=== PATIENT | female | born 1990 | race Caucasian/White ===

== ENCOUNTER 2017-03-27 11:23 | Emergency (ER) | payer OTHER ==
[2017-03-27 11:28] VITALS: TEMP 98.4
--- NOTE | 2017-03-27 12:06 | PDOC ---
History of Present Illness - General Chief Complaint: Pain Stated Complaint: CONSTIPATION Time Seen by Provider: 03/27/17 12:00 - History of Present Illness Initial Comments: 03/27/17 12:05 27 yo F with h/o gastritis who presents with rectal pain. Patient reports worsening rectal pain over the past 3 days. States that she has had recurrent hemorrhoids over the past 2 years with worsening of symptoms this past week. Has visualized BRBPR when wiping. Pain with defecation. Symtpoms refractry to preparation H medication . Also complains of diarrhea typically associated with her menstruation. States that she experiences worsening of her gastritis during menstruation and currently endorses reflux type substernal burning worsened with "spicy" foods. Currently menstruating. Denies N/V, F/C, dysuria, hematuria , chest pain, SOB. PCP Dr. Parry. Past History - Past Medical History Allergies/Adverse Reactions: Allergies Allergy/AdvReac Type Severity Reaction Status Date / Time No Known Allergies Allergy Verified 03/27/17 11:28 Home Medications: Ambulatory Orders Hydrocortisone [Preparation H] 26 gm TP BID PRN 03/27/17 Anemia: No Asthma: No Cancer: No Cardiac Disorders: No CVA: No COPD: No CHF: No DVT: No Dementia: No Diabetes: No Dialysis: No GI Disorders: Yes (gastritis) HTN: No Hypercholesterolemia: No Kidney Stones: No Liver Disease: No Psychiatric Problems: No Seizures: No Thyroid Disease: No Lung CA: No - Surgical History Abdominal Surgery: No - Immunization History Immunization Up to Date: Yes - Suicide/Smoking/Psychosocial Hx Smoking Status: No Smoking History: Never smoked Number of Cigarettes Smoked Daily: 0 Hx Alcohol Use: No Drug/Substance Use Hx: No Substance Use Type: None Review of Systems - Review of Systems Comments:: 03/27/17 12:05 GENERAL/CONSTITUTIONAL: No fever or chills. No weakness. HEAD, EYES, EARS, NOSE AND THROAT: No change in vision. No ear pain or discharge. No sore throat.- CARDIOVASCULAR: No chest pain or shortness of breath RESPIRATORY: No cough, wheezing, or hemoptysis. GASTROINTESTINAL:+ diarrhea and rectal pain. No nausea, vomiting, constipation. GENITOURINARY: No dysuria, frequency, or change in urination. MUSCULOSKELETAL: No joint or muscle swelling or pain. No neck or back pain. SKIN: No rash NEUROLOGIC: No headache, vertigo, loss of consciousness, or change in strength/ sensation. ENDOCRINE: No increased thirst. No abnormal weight change HEMATOLOGIC/LYMPHATIC: No anemia, easy bleeding, or history of blood clots. ALLERGIC/IMMUNOLOGIC: No hives or skin allergy. *Physical Exam - Vital Signs Last Vital Signs Temp Pulse Resp BP Pulse Ox 98.4 F 77 20 152/98 99 03/27/17 11:25 03/27/17 11:25 03/27/17 11:25 03/27/17 11:25 03/27/17 11:25 - Physical Exam Comments: 03/27/17 12:05 GENERAL: Awake, alert, and fully oriented, in no acute distress HEAD: No signs of trauma, normocephalic, atraumatic EYES: PERRLA, EOMI, sclera anicteric, conjunctiva clear ENT: Hearing grossly normal, nares patent, oropharynx clear without exudates. Moist mucosa NECK: Normal ROM, no JVD, or masses LUNGS: No distress, speaks full sentences, clear to auscultation bilaterally HEART: Regular rate and rhythm, normal S1 and S2, no murmurs, rubs or gallops, peripheral pulses normal and equal bilaterally. ABDOMEN: Soft, epigastrium ttp, normoactive bowel sounds. No guarding, no rebound. No masses. Neg CVA ttp. Rectal: x 1 1-2 cm external hemmorhoid with no evidence of thrombosis. EXTREMITIES : Normal inspection, Normal range of motion, no edema. No clubbing or cyanosis. SKIN: Warm, Dry, normal turgor, no rashes or lesions noted. ED Treatment Course - LABORATORY CBC & Chemistry Diagram: 03/27/17 12:57 03/27/17 12:57 Medical Decision Making - Medical Decision Making 03/27/17 12:34 27 yo F with h/o gastritis who presents with worsening rectal pain over the past 3 days with recurrent hemorrhoids over the past 2 years with worsening of symptoms this past week. Asx w/ BRBPR when wiping and with defecation. Also complains of epigastric burning. Currently menstruating. Denies N/V, F/C, dysuria, hematuria, chest pain, SOB. Physical exam with substernal ttp and external hemmorhoid measuring 1-2 cm.. Hemodynamically stable. Symptoms most likely 2/2 hemmorhoidal pain. ED Course: CBC, CMP, Lipase, UA, Urine preg 03/27/17 13:42 UA: 3 + Blood CBC: Unremarkable 03/27/17 14:07 CMP: Unremarkable Patient safe and ready for d/c with return precautions. Will not attempt hemorrhoidectomy as hemmorrhoids do not appear thrombosed. Will f/u with GI. *DC/Admit/Observation/Transfer Diagnosis at time of Disposition: Bleeding hemorrhoids - Discharge Dispostion Disposition: HOME Condition at time of disposition: Stable Admit: No - Referrals Referrals: Martha Lee MD [Primary Care Provider] - - Patient Instructions Printed Discharge Instructions: DI for Hemorrhoids Additional Instructions: Do a cool Sitz bath with epsom salt three times a day. A sitz bath is one in which you sit in cool water to ease pain or swelling to the anus or vaginal opening. Instructions for sitz bath: Add 1/4 cup of epsom salt to your basin and soak your bottom in it for 20 mins Increase fiber and water and decrease meat and cheese. Avoid prolonged time on the toilet and toilet paper. Apply water soluble lubricant prior to defecation. Follow up with the GI doctor within 1 week. Call the office for an appointment tomorrow. Return to the emergency department if you have any new, worsening, or concerning symptoms. - Post Discharge Activity
--- NOTE | 2017-03-27 12:09 | PDOC ---
Attending Attestation - Resident Resident Name: MatteoGiovanniDemian - ED Attending Attestation I have performed the following: I have examined & evaluated the patient, The case was reviewed & discussed with the resident, I agree w/resident's findings & plan, Exceptions are as noted - HPI HPI: 03/27/17 13:04 27yo F hx gastritis p/w rectal pain x 3 days. Reports hx of hemorrhoids, and over the last 2 days has had small amount of BRBPR and worsening pain in her hemorrhoids. Reports recent diarrhea which has made her symptoms worse. States that typically, she doesnt have normal BMs and alternates btwn constipation and diarrhea. Reports bright red blood twice on the toilet paper with no bleeding or clots otherwise. Has been applying prep H with minimal relief. Has never seen a surgeon or GI doctor for hemorrhoids. Denies fevers, chills, CP, SOB, abd pain, N/V/D, LE edema, focal weakness/numbness. - Physicial Exam PE: 03/27/17 13:09 GENERAL: Awake, alert, and fully oriented, in no acute distress HEAD: No signs of trauma EYES: PERRLA, EOMI, sclera anicteric, conjunctiva clear ENT: Auricles normal inspection, hearing grossly normal, nares patent, oropharynx clear without exudates. Moist mucosa NECK: Normal ROM, supple, no lymphadenopathy, JVD, or masses LUNGS: Breath sounds equal, clear to auscultation bilaterally. No wheezes, and no crackles HEART: Regular rate and rhythm, normal S1 and S2, no murmurs, rubs or gallops ABDOMEN: Soft, nontender, normoactive bowel sounds. No guarding, no rebound. No masses RECTAL: multiple soft pink external hemorrhoids, the largest of which is 1cm at 6 o'clock. No bleeding. EXTREMITIES: Normal range of motion, no edema. No clubbing or cyanosis. No cords, erythema, or tenderness NEUROLOGICAL: Normal speech, cranial nerves intact, negative pronator drift, 5/ 5 strength in all 4 extremities, normal sensation to light touch in all 4 extremities, normal cerebellar exam, normal gait, normal reflexes and tone SKIN: Warm, Dry, normal turgor, no rashes or lesions noted. - Medical Decision Making 03/27/17 14:08 27-year-old female presents with small amounts of bright red blood per rectum and painful external hemorrhoids. Vitals are unremarkable. Exam with nonthrombosed external hemorrhoids. Will recommend sitz baths and fiber diet and discharge to follow up with PMD.
[2017-03-27 13:13] LABS: BASOPHIL 0.6 % (0-2.0); EOSINOPHIL 0.1 % (0-4.5); MCH 30.5 pg (25.7-33.7); MCHC 33.3 g/dl (32.0-36.0); MEAN CELL VOLUME 91.6 fl (80-96); MEAN PLT VOLUME 8.6 fl (7.5-11.1); NEUTROPHILS 81.1 % (42.8-82.8); PLATELET COUNT 234 K/MM3 (134-434); RDW 13.2 % (11.6-15.6); WHITE BLOOD COUNT 5.6 K/mm3 (4.0-10.0)
[2017-03-27 13:14] LABS: URINE APPEARANCE SLCLOUDY; URINE BILIRUBIN NEGATIVE (NEGATIVE); URINE BLOOD 3+ (NEGATIVE); URINE COLOR LTYELLOW; URINE GLUCOSE (UA) NEGATIVE (NEGATIVE); URINE KETONE 1+ (NEGATIVE); URINE LEUK ESTERASE TRACE (NEGATIVE); URINE NITRITE NEGATIVE (NEGATIVE); URINE PROTEIN NEGATIVE (NEGATIVE); URINE UROBILINOGEN NEGATIVE mg/dL (0.2-1.0)
[2017-03-27 13:21] LABS: URINE RBC 181 /hpf (0-3); URINE WBC 34 /hpf (3-5)
[2017-03-27 13:51] LABS: ALBUMIN 4.2 g/dl (3.4-5.0); ALK PHOS 66 U/L (45-117); ANION GAP 9 (8-16); BILIRUBIN,TOTAL 0.6 mg/dL (0.2-1.0); CO2 27 mmol/L (21-32); CREATININE 0.5 mg/dL (0.55-1.02); GLUCOSE,RANDOM 82 mg/dL (74-106); SGOT/AST 10 U/L (15-37); SGPT/ALT 11 U/L (12-78); TOT PROT 7.9 g/dl (6.4-8.2)
[2017-03-27 14:55] VITALS: BP 110/68; PULSE 68
[2017-03-27 19:59] LABS: URINE LEUK ESTERASE Negative (NEGATIVE)
== END 2017-03-27 14:55 | disposition home or self-care (01) ==
LOC: JER 11:23
DX: K64.8 Other hemorrhoids (principal)
CPT/HCPCS: 36415; 80053; 81003; 81015; 83690; 84703; 85025; 99282-25

== ENCOUNTER 2017-04-07 00:41 | Emergency (ER) | payer OTHER ==
--- NOTE | 2017-04-07 01:20 | PDOC ---
History of Present Illness - General History Source: Patient Exam Limitations: No Limitations - History of Present Illness Initial Comments: 04/07/17 01:20 27-year-old female with no medical history presents to the emergency department complaining of burning upon urination, malodorous/thin/grayish white vaginal discharge without hematuria, fever, chills, nausea/vomiting, chest pain, shortness of breath, flank pains. Patient states her symptoms feel similar to her previous UTIs. Pain is increased with sexual activity. LMP 03/24/2017 Timing/Duration: 1-3 hours <Claudy Ahuja - Last Filed: 04/07/17 02:23> <Martha Delgado - Last Filed: 04/09/17 08:13> - General Stated Complaint: POSSIBLE UTI Time Seen by Provider: 04/07/17 01:06 Past History - Past Medical History Anemia: No Asthma: No Cancer: No Cardiac Disorders: No CVA: No COPD: No CHF: No DVT: No Dementia: No Diabetes: No Dialysis: No GI Disorders: Yes (gastritis) HTN: No Hypercholesterolemia: No Kidney Stones: No Liver Disease: No Psychiatric Problems: No Seizures: No Thyroid Disease: No Lung CA: No - Surgical History Abdominal Surgery: No - Immunization History Immunization Up to Date: Yes - Suicide/Smoking/Psychosocial Hx Smoking Status: No Smoking History: Never smoked Number of Cigarettes Smoked Daily: 0 Hx Alcohol Use: No Drug/Substance Use Hx: No Substance Use Type: None <Claudy Ahuja - Last Filed: 04/07/17 02:23> <Martha Delgado - Last Filed: 04/09/17 08:13> - Past Medical History Allergies/Adverse Reactions: Allergies Allergy/AdvReac Type Severity Reaction Status Date / Time No Known Allergies Allergy Verified 03/27/17 11:28 Home Medications: Ambulatory Orders Metronidazole 0.75% Vag. Gel [Metrogel 0.75% *Vaginal Gel* -] 1 applic VG HS 5 Days #1 tube 04/07/17 Omeprazole 20 mg PO DAILY 04/07/17 Review of Systems - Review of Systems Able to Perform ROS?: Yes Comments:: 04/07/17 01:35 CONSTITUTIONAL: Absent: fever, chills, diaphoresis, generalized weakness, malaise, loss of appetite HEENT: Absent: rhinorrhea, nasal congestion, throat pain, throat swelling, difficulty swallowing, mouth swelling, ear pain, eye pain, visual Changes CARDIOVASCULAR: Absent: chest pain, loss of consciousness, palpitations, irregular heart rate, peripheral edema RESPIRATORY: Absent: cough, shortness of breath, dyspnea with exertion, orthopnea, wheezing, stridor, hemoptysis GASTROINTESTINAL: Absent: abdominal pain, abdominal distension, nausea, vomiting, diarrhea, constipation, melena, hematochezia GENITOURINARY: +dysuria, frequency, urgency, hesitancy Absent: hematuria, flank pain, genital pain MUSCULOSKELETAL: Absent: myalgia, arthralgia, joint swelling SKIN: Absent: rash, itching, pallor Is the patient limited Turkmen proficient: No <Claudy Ahuja - Last Filed: 04/07/17 02:23> *Physical Exam - Physical Exam Comments: 04/07/17 01:35 GENERAL: Well developed, well nourished. Awake and alert. No acute distress. HEENT: Normocephalic, atraumatic. PERRLA, EOMI. No conjunctival pallor. Sclera are non- icteric. Moist mucous membranes. Oropharynx is clear. NECK: Supple. Full ROM. No JVD. Carotid pulses 2+ and symmetric, without bruits. No thyromegaly. No lymphadenopathy. CARDIOVASCULAR: Regular rate and rhythm. No murmurs, rubs, or gallops. Distal pulses are 2+ and symmetric. PULMONARY: No evidence of respiratory distress. Lungs clear to auscultation bilaterally. No wheezing, rales or rhonchi. ABDOMINAL: +bladder pressure Soft. Non-tender. Non-distended. No rebound or guarding. No organomegaly. Normoactive bowel sounds. MUSCULOSKELETAL Normal range of motion at all joints. No bony deformities or tenderness. No CVA tenderness. SKIN: Warm and dry. Normal capillary refill. No rashes. No jaundice. 04/07/17 02:26 Pelvic: External genitalia normal without lesions. Vaginal vault is grayish/white discharge. Cervix is long and closed. No cervical motion tenderness. Uterus is nontender and normal in size. Adnexa are nontender and without masses. <Claudy Ahuja - Last Filed: 04/07/17 02:23> - Vital Signs Last Vital Signs Temp Pulse Resp BP Pulse Ox 98.7 F 98 H 18 110/74 99 04/07/17 01:58 04/07/17 01:58 04/07/17 01:58 04/07/17 01:58 04/07/17 01:58 <Martha Delgado - Last Filed: 04/09/17 08:13> ED Treatment Course - ADDITIONAL ORDERS Additional order review: 04/07/17 01:15 Urine Culture - Final Urine - Urine Clean Catch Contaminated: Please Repeat <Martha Delgado - Last Filed: 04/09/17 08:13> *DC/Admit/Observation/Transfer - Discharge Dispostion Admit: No <Claudy Ahuja - Last Filed: 04/07/17 02:23> - Attestations Physician Attestion: I reviewed the case with the mid-level practitioner and agree with the mid- level practitioner's assessment, diagnosis and disposition. <Martha Delgado - Last Filed: 04/09/17 08:13> Diagnosis at time of Disposition: Bacterial vaginosis - Discharge Dispostion Disposition: HOME Condition at time of disposition: Stable - Prescriptions Prescriptions: Metronidazole 0.75% Vag. Gel [Metrogel 0.75% *Vaginal Gel* -] 1 applic VG HS 5 Days #1 tube - Referrals Referrals: Martha Lee MD [Primary Care Provider] - Mike Vega MD [Staff Physician] - - Patient Instructions Printed Discharge Instructions: DI for Bacterial Vaginosis Additional Instructions: Increase fluids Pelvic rest/as discussed Antibiotics as prescribed Follow up with your physician and or the skin grader/Dr. Vinson Return to the ER for severe/persistent/worsening symptoms - Post Discharge Activity
[2017-04-07 01:39] LABS: URINE APPEARANCE CLOUDY; URINE BILIRUBIN NEGATIVE (NEGATIVE); URINE BLOOD NEGATIVE (NEGATIVE); URINE COLOR YELLOW; URINE GLUCOSE (UA) NEGATIVE (NEGATIVE); URINE KETONE NEGATIVE (NEGATIVE); URINE LEUK ESTERASE TRACE (NEGATIVE); URINE NITRITE NEGATIVE (NEGATIVE); URINE PROTEIN NEGATIVE (NEGATIVE)
[2017-04-07 01:54] LABS: URINE BACTERIA MODERATE /hpf (NONE SEEN); URINE MUCUS FEW; URINE WBC 22 /hpf (3-5)
[2017-04-07 02:02] VITALS: BP 110/74; PULSE 98; TEMP 98.7; BMI 22.3
[2017-04-07 02:56] LABS: URINE RBC 3 /hpf (0-3)
[2017-04-07 13:15] LABS: URINE LEUK ESTERASE Negative (NEGATIVE)
== END 2017-04-07 02:38 | disposition home or self-care (01) ==
LOC: JER 00:41
DX: N76.0 Acute vaginitis (principal)
CPT/HCPCS: 81003; 81015; 84703; 87086; 99282-25

== ENCOUNTER 2017-06-11 01:08 | Emergency (ER) | payer OTHER ==
--- NOTE | 2017-06-11 01:31 | PDOC ---
History of Present Illness - General Stated Complaint: DIARRHEA History Source: Patient Exam Limitations: No Limitations - History of Present Illness Initial Comments: 06/11/17 01:27 27 y/o F with PMH gastritis, external hemorrhoids, who presents to the ED c/o chronic diarrhea. As per pt, she has had "chronic diarrhea" over the past two years. However, pt states that she has one loose BM every morning during this time, a/w diffuse abdominal pain. Pt follows with Dr. Cadet and was prescribed megestrol acetate, folic acid, and famotidine last week. She was told she needed an endoscopy, however her insurance does not cover this, so she has come to [facility] ED. Before her arrival today, she went to [facility] for the same reason, however was d/c with clinic referral. Pt endorses generalized nausea, and 80 pound weight loss over the last year d/t food aversion concerning gastritis. Otherwise, pt denies DEVINE, fever, chills, SOB, chest pain, or changes in urinary function. PMH: as above PsxH: denies meds: megestrol acetate, folic acid, famotidine allergies: NKDA FH: denies SH: denies cigarette, alcohol or recreational drug use Past History - Past Medical History Allergies/Adverse Reactions: Allergies Allergy/AdvReac Type Severity Reaction Status Date / Time No Known Allergies Allergy Verified 06/11/17 01:45 Home Medications: Ambulatory Orders Omeprazole 20 mg PO DAILY 04/07/17 metroNIDAZOLE 0.75% VAG. GEL [Metrogel 0.75% *Vaginal Gel* -] 1 applic VG HS 5 Days #1 tube 04/07/17 Anemia: No Asthma: No Cancer: No Cardiac Disorders: No CVA: No COPD: No CHF: No DVT: No Dementia: No Diabetes: No Dialysis: No GI Disorders: Yes (gastritis) HTN: No Hypercholesterolemia: No Kidney Stones: No Liver Disease: No Psychiatric Problems: No Seizures: No Thyroid Disease: No Lung CA: No - Surgical History Abdominal Surgery: No - Immunization History Immunization Up to Date: Yes - Suicide/Smoking/Psychosocial Hx Smoking Status: No Smoking History: Never smoked Have you smoked in the past 12 months: No Number of Cigarettes Smoked Daily: 0 Hx Alcohol Use: No Drug/Substance Use Hx: No Substance Use Type: None Review of Systems - Review of Systems Able to Perform ROS?: Yes Is the patient limited Ukrainian proficient: No ABD/GI: Yes: Diarrhea, Nausea All Other Systems: Reviewed and Negative *Physical Exam - Physical Exam General Appearance: Yes: Other (in no acute distress) HEENT: positive: EOMI, MANUEL Neck: positive: Supple Respiratory/Chest: positive: Lungs Clear, Normal Breath Sounds Cardiovascular: positive: Regular Rhythm, Regular Rate, S1, S2 Vascular Pulses: Dorsalis-Pedis (R): 2+, Doralis-Pedis (L): 2+ Gastrointestinal/Abdominal: positive: Normal Bowel Sounds, Other (diffusely TTP) Extremity: positive: Normal Range of Motion Neurologic: positive: executive chef assistant II-XII NML intact ED Treatment Course - LABORATORY CBC & Chemistry Diagram: 06/11/17 02:07 06/11/17 02:07 Medical Decision Making - Medical Decision Making 06/11/17 01:43 27 y/o F with PMH gastritis, external hemorrhoids, who presents to the ED c/o chronic diarrhea. As per pt, she has had "chronic diarrhea" over the past two years. Will get blood - CBC, CMP, Mg. Will give IVF 06/11/17 02:45 CBC WNL - no white count Mg WNL CMP pending Will give Tylenol x 1 , and send u preg 06/11/17 03:20 u preg (-) K+ 3.1 likely from electrolyte loss 2/2 diarrhea will supplement with KCl liq 20mEq 06/11/17 03:38 *DC/Admit/Observation/Transfer Diagnosis at time of Disposition: Diarrhea Qualifiers: Diarrhea type: unspecified type Qualified Code(s): R19.7 - Diarrhea, unspecified - Discharge Dispostion Disposition: HOME Condition at time of disposition: Fair Admit: No - Referrals Referrals: Martha Lee MD [Primary Care Provider] - - Patient Instructions Additional Instructions: You were recently in the hospital for diarrhea. You had blood drawn which was normal. You were given IV fluids. We recommend you try and contact the following GI doctors to discuss endoscopy: Dr. Seth Guevara [phone] Dr. Johnny Lazo [phone] Dr. Rito Taylor [phone] Dr. Je August [phone] Dr. Angelo Sutton [phone] Please follow up with your primary care doctor this week to discuss your emergency department visit. If you develop severe abdominal pain, shortness of breath or chest pain, please go to the hospital. We hope you feel better soon. - Post Discharge Activity
[2017-06-11 01:45] VITALS: BP 152/96; PULSE 68; TEMP 98.2; BMI 22.6
[2017-06-11] MEDS ORDERED: SODIUM CHLORIDE 1,000 ML IV STA (01:46)
--- NOTE | 2017-06-11 01:59 | PDOC ---
Attending Attestation - Resident Resident Name: Shonna Edwards - ED Attending Attestation I have performed the following: I have examined & evaluated the patient, The case was reviewed & discussed with the resident, I agree w/resident's findings & plan, Exceptions are as noted - HPI HPI: 06/11/17 01:58 27-year-old female with past medical history of chronic diarrhea, hemorrhoids presents with diarrhea for 2 years. Patient reported that she has daily diarrhea in the mornings. She is under workup by an outside physician, marble mason Dr. Cadet. States that she is due for colonoscopy but secondary to insurance reasons, the patient is unable to get one. She is requesting another gastro-draw this week and take her insurance. Patient denies any fevers, nausea, vomiting. Denies any abdominal pain. Stated that the volume diarrheas increased so came to the ED. - Physicial Exam PE: 06/11/17 01:59 GENERAL: Awake, alert, and fully oriented, in no acute distress. HEAD: No signs of trauma EYES: PERRLA, EOMI, sclera anicteric, conjunctiva clear ENT: Auricles normal inspection, hearing grossly normal, nares patent, NECK: Normal ROM, supple ABDOMEN: Soft, nontender. No guarding, no rebound. No masses EXTREMITIES: Normal range of motion, no edema. No clubbing or cyanosis. No cords, erythema, or tenderness NEUROLOGICAL: Cranial nerves II through XII grossly intact. Normal speech, normal gait SKIN: Warm, Dry, normal turgor, no rashes or lesions noted. - Medical Decision Making 06/11/17 01:59 Vital Signs Temp Pulse Resp BP Pulse Ox 98.2 F 68 19 152/96 100 06/11/17 01:43 06/11/17 01:43 06/11/17 01:43 06/11/17 01:43 06/11/17 01:43 The patient has chronic diarrhea, possibly irritable bowel syndrome. However, he agreed that the patient does need an outpatient colonoscopy. Patient has insurance issues and requesting another gastrologist. We'll obtain basic blood work and at this workup is unremarkable, we'll discharge patient with outpatient follow-up with GI.
[2017-06-11 02:14] LABS: BASO % 0.9 % (0-2.0); EOS % 1.1 % (0-4.5); HEMATOCRIT 39.5 % (32.4-45.2); HEMOGLOBIN 13.6 GM/dL (10.7-15.3); LYMPH % 35.5 % (8-40); MCH 31.6 pg (25.7-33.7); MCHC 34.4 g/dl (32.0-36.0); MEAN CELL VOLUME 91.9 fl (80-96); MEAN PLT VOLUME 9.3 fl (7.5-11.1); MONO % 4.6 % (3.8-10.2); NEUT % 57.9 % (42.8-82.8); PLATELET COUNT 235 K/MM3 (134-434); WHITE BLOOD COUNT 6.8 K/mm3 (4.0-10.0)
[2017-06-11 02:42] LABS: ALBUMIN 3.8 g/dl (3.4-5.0); ANION GAP 12 (8-16); BILIRUBIN,TOTAL 0.5 mg/dL (0.2-1.0); BLOOD UREA NITROGEN 11 mg/dL (7-18); CALCIUM 8.5 mg/dL (8.5-10.1); CHLORIDE 100 mmol/L (98-107); CO2 27 mmol/L (21-32); CREATININE 0.6 mg/dL (0.55-1.02); GLUCOSE,RANDOM 79 mg/dL (74-106); POTASSIUM 3.1 mmol/L (3.5-5.1); SGOT/AST 13 U/L (15-37); SGPT/ALT 6 U/L (12-78); SODIUM 139 mmol/L (136-145); TOT PROT 7.7 g/dl (6.4-8.2)
[2017-06-11] MEDS ORDERED: ACETAMINOPHEN 500 MG TABLET (FP) PO ONE (02:42)
[2017-06-11 02:43] LABS: ALK PHOS 80 U/L (45-117)
[2017-06-11] MEDS ORDERED: ACETAMINOPHEN 325 MG TABLET (FP) ONE (02:58)
[2017-06-11] MEDS ORDERED: ACETAMINOPHEN 650 MG/20.3 ML ORAL SOLUTION (CUPS) ONE (03:01)
[2017-06-11] MEDS ORDERED: ACETAMINOPHEN 650 MG/20.3 ML ORAL SOLUTION (CUPS) PO ONE (03:09)
[2017-06-11 03:14] LABS: URINE APPEARANCE CLEAR; URINE BILIRUBIN NEGATIVE (NEGATIVE); URINE BLOOD NEGATIVE (NEGATIVE); URINE COLOR STRAW; URINE GLUCOSE (UA) NEGATIVE (NEGATIVE); URINE KETONE NEGATIVE (NEGATIVE); URINE LEUK ESTERASE NEGATIVE (NEGATIVE); URINE NITRITE NEGATIVE (NEGATIVE); URINE PROTEIN NEGATIVE (NEGATIVE); URINE UROBILINOGEN NEGATIVE mg/dL (0.2-1.0)
[2017-06-11] MEDS ORDERED: POTASSIUM CHLORIDE TABS 20 MEQ TABLET.ER (FP) PO ONE (03:26)
[2017-06-11] MEDS ORDERED: POTASSIUM CHLORIDE ORAL LIQUID 20 MEQ/15 ML PO ONE (03:37)
[2017-06-11] MEDS ORDERED: POTASSIUM CHLORIDE ORAL LIQUID 20 MEQ/15 ML ONE (03:39)
== END 2017-06-11 03:43 | disposition home or self-care (01) ==
LOC: JER 01:08
PROC: 3E0337Z Introduction of Electrolytic and Water Balance Substance into Peripheral Vein, Percutaneous Approach (ICD-10-PCS; principal; 2017-06-11)
DX: R19.7 Diarrhea, unspecified (principal)
CPT/HCPCS: 36415; 80053; 81003; 83735; 84703; 85025; 87086; 96360; 99282-25

== ENCOUNTER 2018-05-16 17:40 | Emergency (ER) | payer OTHER ==
--- NOTE | 2018-05-16 18:03 | PDOC ---
Rapid Medical Evaluation Time Seen by Provider: 05/16/18 18:01 Medical Evaluation: Allergies Allergy/AdvReac Type Severity Reaction Status Date / Time No Known Allergies Allergy Verified 06/11/17 01:45 05/16/18 18:02 Pt presents for diarrhea for 3 days Exam: epigastric pain Orders:labs urine Pt to proceed to the ED for further evaluation Discharge Disposition - Diagnosis IBS (irritable bowel syndrome) Qualifiers: Irritable bowel syndrome type: with both diarrhea and constipation Qualified Code(s): K58.2 - Mixed irritable bowel syndrome - Discharge Dispostion Disposition: HOME Condition at time of disposition: Stable - Prescriptions Prescriptions: L.acid/L.casei/B.bif/B.anuja/Fos [Probiotic Blend Capsule] 1 each PO DAILY 40 Days #30 capsule - Referrals Referrals: Carla Travis MD [Staff Physician] - - Patient Instructions Printed Discharge Instructions: DI for Irritable Bowel Syndrome Additional Instructions: Please try only 15 of the anti-diarrhea medicine. Please take the probiotics every day. Please follow up with Dr. Thaddeus THORNE and he will help you find appropriate care for you IBS. - Post Discharge Activity
[2018-05-16 18:05] VITALS: BP 120/80; PULSE 69; TEMP 99.4; BMI 18.5
--- NOTE | 2018-05-16 18:34 | PDOC ---
History of Present Illness - General Chief Complaint: Pain Stated Complaint: DIARRHEA Time Seen by Provider: 05/16/18 18:01 - History of Present Illness Initial Comments: 28 year old female with PMH of IBS presenting with abdominal pain and interchanging diarrhea and constipation. 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 Lashonda would like another referral. Denies fevers, chills, nausea, vomiting, bloody stools or other symptoms. She does get relief with immodium but occasionally constipates her. 05/16/18 20:05 Past History - Past Medical History Allergies/Adverse Reactions: Allergies Allergy/AdvReac Type Severity Reaction Status Date / Time No Known Allergies Allergy Verified 05/16/18 18:03 Home Medications: Ambulatory Orders Chlordiazepoxide/Clidinium Br [Librax Capsule] 1 each PO DAILY 05/16/18 L.acid/L.casei/B.bif/B.anuja/Fos [Probiotic Blend Capsule] 1 each PO DAILY 40 Days #30 capsule 05/16/18 Anemia: No Asthma: No Cancer: No Cardiac Disorders: No CVA: No COPD: No CHF: No DVT: No Dementia: No Diabetes: No Dialysis: No GI Disorders: Yes (gastritis) HTN: No Hypercholesterolemia: No Kidney Stones: No Liver Disease: No Psychiatric Problems: No Seizures: No Thyroid Disease: No Lung CA: No - Surgical History Abdominal Surgery: No - Immunization History Immunization Up to Date: Yes - Suicide/Smoking/Psychosocial Hx Smoking Status: No Smoking History: Never smoked Have you smoked in the past 12 months: No Number of Cigarettes Smoked Daily: 0 Hx Alcohol Use: No Drug/Substance Use Hx: No Substance Use Type: None Review of Systems - Review of Systems Constitutional: No: Chills, Diaphoresis, Fever, Loss of Appetite, Malaise HEENTM: No: Eye Pain, Blurred Vision, Tearing Respiratory: No: Cough, Orthopnea, Shortness of Breath Cardiac (ROS): No: Chest Pain, Edema, Irregular Heart Rate ABD/GI: Yes: Constipated, Diarrhea. No: Nausea, Vomiting : No: Burning, Dysuria Musculoskeletal: No: Joint Pain, Joint Swelling, Muscle Pain, Muscle Weakness Integumentary: No: Bruising, Change in Color, Change in Hair/Nails, Dryness Neurological: No: Headache, Numbness, Paresthesia Psychiatric: No: Anxiety, Depression Endocrine: No: Flushing, Intolerance to Cold, Increased Thirst, Increased Urine Hematologic/Lymphatic: No: Anemia, Blood Clots, Easy Bleeding *Physical Exam - Vital Signs Last Vital Signs Temp Pulse Resp BP Pulse Ox 99.4 F 69 16 120/80 99 05/16/18 18:03 05/16/18 18:03 05/16/18 18:03 05/16/18 18:03 05/16/18 18:03 - Physical Exam General Appearance: Yes: Nourished, Appropriately Dressed. No: Apparent Distress HEENT: positive: EOMI, MANUEL, Normal ENT Inspection, Normal Voice Neck: positive: Trachea midline, Normal Thyroid, Supple. negative: Tender, Rigid Respiratory/Chest: positive: Lungs Clear, Normal Breath Sounds. negative: Chest Tender, Respiratory Distress, Accessory Muscle Use Cardiovascular: positive: Regular Rhythm, Regular Rate Gastrointestinal/Abdominal: positive: Normal Bowel Sounds, Flat, Soft. negative : Tender Lymphatic: negative: Adenopathy, Tenderness Musculoskeletal: positive: Normal Inspection. negative: Decreased Range of Motion Extremity: positive: Normal Capillary Refill, Normal Inspection, Normal Range of Motion. negative: Tender Integumentary: positive: Normal Color, Dry, Warm Neurologic: positive: Fully Oriented, Alert, Normal Mood/Affect, Normal Response. negative: Motor Strength 5/5 Moderate Sedation - Procedure Monitoring Vital Signs: Procedure Monitoring Vital Signs Temperature 99.4 F 05/16/18 18:03 Pulse Rate 69 05/16/18 18:03 Respiratory Rate 16 05/16/18 18:03 Blood Pressure 120/80 05/16/18 18:03 O2 Sat by Pulse Oximetry (%) 99 05/16/18 18:03 ED Treatment Course - LABORATORY CBC & Chemistry Diagram: 05/16/18 18:00 05/16/18 18:00 Medical Decision Making - Medical Decision Making 28 year old with IBS presenting with need for a new GI doctor. Labs mostly WNL except for K. Will give K dur 40 and DC with follow up with Dewayne Travis. 05/16/18 20:09 *DC/Admit/Observation/Transfer Diagnosis at time of Disposition: IBS (irritable bowel syndrome) Qualifiers: Irritable bowel syndrome type: with both diarrhea and constipation Qualified Code(s): K58.2 - Mixed irritable bowel syndrome - Discharge Dispostion Disposition: HOME Condition at time of disposition: Stable Decision to Admit order: No - Prescriptions Prescriptions: L.acid/L.casei/B.bif/B.anuja/Fos [Probiotic Blend Capsule] 1 each PO DAILY 40 Days #30 capsule - Referrals Referrals: Carla Travis MD [Staff Physician] - - Patient Instructions Printed Discharge Instructions: DI for Irritable Bowel Syndrome Additional Instructions: Please try only 15 of the anti-diarrhea medicine. Please take the probiotics every day. Please follow up with Dr. Thaddeus THORNE and he will help you find appropriate care for you IBS. - Post Discharge Activity
[2018-05-16 19:12] LABS: BASO % 0.6 % (0-2.0); EOS % 0.1 % (0-4.5); HEMATOCRIT 37.3 % (32.4-45.2); LYMPH % 21.5 % (8-40); MCH 32.5 pg (25.7-33.7); MCHC 34.9 g/dl (32.0-36.0); MEAN CELL VOLUME 93.1 fl (80-96); MEAN PLT VOLUME 9.7 fl (7.5-11.1); MONO % 2.9 % (3.8-10.2); NEUT % 74.9 % (42.8-82.8); PLATELET COUNT 199 K/MM3 (134-434); RDW 13.3 % (11.6-15.6); WHITE BLOOD COUNT 7.3 K/mm3 (4.0-10.0)
[2018-05-16 19:32] LABS: ALK PHOS 82 U/L (45-117); ANION GAP 6 MMOL/L (8-16); BILIRUBIN,TOTAL 0.5 mg/dL (0.2-1); BLOOD UREA NITROGEN 8 mg/dL (7-18); CALCIUM 8.5 mg/dL (8.5-10.1); CHLORIDE 103 mmol/L (98-107); CO2 29 mmol/L (21-32); CREATININE 0.6 mg/dL (0.55-1.3); GLUCOSE,RANDOM 90 mg/dL (74-106); LIPASE 114 U/L (73-393); POTASSIUM 3.4 mmol/L (3.5-5.1); SGOT/AST 16 U/L (15-37); SGPT/ALT 11 U/L (13-61); SODIUM 139 mmol/L (136-145); TOT PROT 7.4 g/dl (6.4-8.2)
--- NOTE | 2018-05-16 20:17 | PDOC ---
Attending Attestation - Resident Resident Name: AnnetteRileymartharinku - ED Attending Attestation I have performed the following: I have examined & evaluated the patient, The case was reviewed & discussed with the resident, I agree w/resident's findings & plan, Exceptions are as noted - HPI HPI: 05/16/18 20:16 28 yo female with history of IBS has had exacerbation of her symptoms wih increased bowel movements and tenemus - Physicial Exam PE: 05/16/18 20:17 slender 28 yo female with c/o increased cramping and bowel movements head ncat neck supple lungs cta b/l cvs [id number] abd no rebound., no guarding ext no e/c/c/ neuro no focal deficits - Medical Decision Making 05/16/18 20:37 Labs reviewed and are unremarkable. Patient received IV fluids Symptoms have improved. She'll be discharged. Follow-up with demand manager. Impression chronic IBS
[2018-05-16] MEDS ORDERED: POTASSIUM CHLORIDE TABS 20 MEQ TABLET.ER (FP) PO ONE (20:29)
[2018-05-16 20:38] LABS: URINE APPEARANCE SLCLOUDY; URINE BILIRUBIN NEGATIVE (<2.0 mg/dL); URINE COLOR YELLOW; URINE GLUCOSE (UA) NEGATIVE (NEGATIVE); URINE KETONE 1+ (NEGATIVE); URINE LEUK ESTERASE NEGATIVE (NEGATIVE); URINE NITRITE NEGATIVE (NEGATIVE); URINE PROTEIN NEGATIVE (NEGATIVE); URINE UROBILINOGEN NEGATIVE mg/dL (0.2-1.0)
== END 2018-05-16 20:42 | disposition home or self-care (01) ==
LOC: JER 17:40
DX: K58.2 Mixed irritable bowel syndrome (principal)
CPT/HCPCS: 36415; 80053; 81003; 83690; 84703; 85025; 87086; 99282-25

== ENCOUNTER 2018-07-16 22:56 | Emergency (ER) | payer OTHER ==
[2018-07-16 23:52] VITALS: BP 114/69; PULSE 60; TEMP 98.9; BMI 18.5
--- NOTE | 2018-07-17 00:14 | PDOC ---
Attending Attestation - HPI HPI: The patient is a 28 year old female, with a significant past medical history of IBS, who presents to the emergency department with, vaginal itching, discomfort , and pain, She denies recent fevers, chills, headache or dizziness. She denies recent nausea, vomit, diarrhea or constipation. She denies recent chest pain or shortness of breath. Allergies: NKDA Primary Care Physician: Dr. Pearce GI: [facility] - Physicial Exam PE: 07/17/18 00:22 GENERAL: Well-appearing, well-nourished. No apparent distress. HEENT: Normocephalic, atraumatic. PERRL, EOM intact. CARDIOVASCULAR: Normal S1, S2. Regular rate and rhythm. PULMONARY: Clear to auscultation bilaterally. ABDOMEN: Soft, non-distended, non-tender. PELVIC: Refer to resident exam. EXTREMITIES: Normal ROM in all four extremities. No gross deformities. SKIN: Warm, dry. No rash NEUROLOGICAL: No focal neurological deficits. 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 <Marquise Elliott - Last Filed: 07/17/18 00:46>
--- NOTE | 2018-07-17 00:17 | PDOC ---
History of Present Illness - General Chief Complaint: Urinary Problem Stated Complaint: PAINFUL URINATION Time Seen by Provider: 07/16/18 23:44 - History of Present Illness Initial Comments: 07/17/18 00:36 28f with no pmh presents with 2 days of pruritic urination. Denies discharge. Denies abdominal pain, fever, dyspareunia. States this she has been trying to get for years but is somehow afraid of since she has IBS. Denies ever having a STD. LAst OBGYN visit last year. LAst PAp smaear was normal. Doesn't have an OBGYN anymore. 07/17/18 00:43 Past History - Past Medical History Allergies/Adverse Reactions: Allergies Allergy/AdvReac Type Severity Reaction Status Date / Time No Known Allergies Allergy Verified 07/16/18 23:52 Home Medications: Ambulatory Orders Chlordiazepoxide/Clidinium Br [Librax Capsule] 1 each PO DAILY 05/16/18 L.acid/L.casei/B.bif/B.anuja/Fos [Probiotic Blend Capsule] 1 each PO DAILY 40 Days #30 capsule 05/16/18 Anemia: No Asthma: No Cancer: No Cardiac Disorders: No CVA: No COPD: No CHF: No DVT: No Dementia: No Diabetes: No Dialysis: No GI Disorders: Yes (gastritis) HTN: No Hypercholesterolemia: No Kidney Stones: No Liver Disease: No Psychiatric Problems: No Seizures: No Thyroid Disease: No Lung CA: No - Surgical History Abdominal Surgery: No - Immunization History Immunization Up to Date: Yes - Suicide/Smoking/Psychosocial Hx Smoking Status: No Smoking History: Never smoked Have you smoked in the past 12 months: No Number of Cigarettes Smoked Daily: 0 Information on smoking cessation initiated: No Hx Alcohol Use: No Drug/Substance Use Hx: No Substance Use Type: None Review of Systems - Review of Systems Able to Perform ROS?: Yes Is the patient limited Malaysian proficient: No Constitutional: No: Symptoms Reported HEENTM: No: Symptoms Reported Respiratory: No: Symptoms reported ABD/GI: No: Symptoms Reported : Yes: See HPI Musculoskeletal: No: Symptoms Reported Integumentary: No: Symptoms Reported Neurological: No: Symptoms reported All Other Systems: Reviewed and Negative *Physical Exam - Vital Signs Last Vital Signs Temp Pulse Resp BP Pulse Ox 98.9 F 60 19 114/69 100 07/16/18 22:56 04/07/19 22:56 07/16/18 22:56 07/16/18 22:56 07/16/18 22:56 - Physical Exam General Appearance: Yes: Nourished, Appropriately Dressed. No: Apparent Distress HEENT: positive: EOMI, MANUEL, Normal ENT Inspection Respiratory/Chest: positive: Lungs Clear, Normal Breath Sounds. negative: Chest Tender, Respiratory Distress Cardiovascular: positive: Regular Rhythm, Regular Rate, S1, S2 Female Pelvic Exam: positive: normal external exam, cervical os closed, normal size ovaries, lesions (White lesion over cervix at the 11am position, concentric circular mucous dehiscence around the os. No discharge). negative: CMT, discharge, Bartholin mass, adnexal tenderness, vaginal bleeding Gastrointestinal/Abdominal: positive: Normal Bowel Sounds, Flat, Soft. negative : Tender Musculoskeletal: positive: Normal Inspection. negative: CVA Tenderness Medical Decision Making - Medical Decision Making 07/17/18 00:44 Sending UA, UC and chlamydia/gonorrhea. Patient willing to get get empirically treated. Giving her ceftriaxone/azithromycin. Advised patient to see OBGYN as soon as possible. Will give referral. Patient now refused azithromycin. Accepted ceftriaxone. Ua negative for UTI. Will dc *DC/Admit/Observation/Transfer Diagnosis at time of Disposition: Dysuria - Discharge Dispostion Disposition: HOME Condition at time of disposition: Fair Decision to Admit order: No - Referrals Referrals: Ewelina Pearce [Primary Care Provider] - Evelia Hill DO [Staff Physician] - - Patient Instructions Printed Discharge Instructions: DI for Dysuria -- Adult Additional Instructions: Follow up with your OBGYN within the week. Get a PAP smear. Come back to the emergency department for any new, worsening or concerning symptom. - Post Discharge Activity
[2018-07-17 00:20] LABS: PH,URINE 8.5 (5.0-8.0); URINE APPEARANCE CLOUDY; URINE BILIRUBIN NEGATIVE (NEGATIVE); URINE COLOR YELLOW; URINE GLUCOSE (UA) NEGATIVE (NEGATIVE); URINE KETONE NEGATIVE (NEGATIVE); URINE LEUK ESTERASE NEGATIVE (NEGATIVE); URINE NITRITE NEGATIVE (NEGATIVE); URINE PROTEIN NEGATIVE (NEGATIVE); URINE UROBILINOGEN 0.2 mg/dL (0.2-1.0)
[2018-07-17 00:22] LABS: HCG,QUALITATIVE URINE Negative
[2018-07-17] MEDS ORDERED: AZITHROMYCIN 500 MG TABLET PO ONE (00:32)
[2018-07-17] MEDS ORDERED: cefTRIAXone SODIUM 1 GM VIAL ONE (00:38)
[2018-07-17] MEDS ORDERED: LIDOCAINE HCL 1%, 10 MG/ML (20ML VIAL) ONE (00:38)
[2018-07-17] MEDS ORDERED: AZITHROMYCIN 250 MG TABLET ONE (00:38)
--- NOTE | 2018-07-17 00:59 | PDOC ---
*Physical Exam - Vital Signs Last Vital Signs Temp Pulse Resp BP Pulse Ox 98.9 F 60 19 114/69 100 07/16/18 22:56 07/16/18 22:56 07/16/18 22:56 07/16/18 22:56 07/16/18 22:56 ED Treatment Course - ADDITIONAL ORDERS Additional order review: Laboratory Results 07/17/18 00:06 Urine Color Yellow Urine Appearance Cloudy Urine pH 8.5 H D Ur Specific [place] 1.027 Urine Protein Negative Urine Glucose (UA) Negative Urine Ketones Negative Urine Blood Negative Urine Nitrite Negative Urine Bilirubin Negative Urine Urobilinogen 0.2 Ur Leukocyte Esterase Negative Urine HCG, Qual Negative - Medications Given in the ED: ED Medications Discontinued Medications Generic Name Dose Route Start Last Admin Trade Name Marisol PRN Reason Stop Dose Admin Azithromycin 1,000 mg 07/17/18 00:32 07/17/18 00:50 Zithromax PO 07/17/18 00:33 Not Given ONCE ONE Ceftriaxone Sodium 250 mg 07/17/18 00:33 07/17/18 00:50 Rocephin - IM 07/17/18 00:34 250 mg ONCE ONE Administration *DC/Admit/Observation/Transfer Diagnosis at time of Disposition: Dysuria - Discharge Dispostion Disposition: HOME Condition at time of disposition: Fair - Referrals Schedule a call back: Call back for chlamydia/gonorrhea results Referrals: Evelia Hill DO [Staff Physician] - Ewelina Pearce [Primary Care Provider] - - Patient Instructions Printed Discharge Instructions: DI for Dysuria -- Adult Additional Instructions: Follow up with your OBGYN within the week. Get a PAP smear. Come back to the emergency department for any new, worsening or concerning symptom. - Post Discharge Activity
== END 2018-07-17 01:06 | disposition home or self-care (01) ==
LOC: JER 22:56
DX: R30.0 Dysuria (principal)
CPT/HCPCS: 36415; 81003; 84703; 87086; 87491; 87591; 96372; 99281-25

== ENCOUNTER 2018-07-23 21:59 | Emergency (ER) | payer OTHER ==
[2018-07-23 22:18] VITALS: BMI 17.4
--- NOTE | 2018-07-23 23:17 | PDOC ---
History of Present Illness - General Chief Complaint: Vaginal Sxs Stated Complaint: VAGINAL PROBLEM Time Seen by Provider: 07/23/18 23:16 - History of Present Illness Initial Comments: 07/23/18 23:41 The patient is a 28 year old female with a history of gastritis who presents for evaluation of burning on urination. The patient notes that she has been having burning on urination over the past 5 days. She was initially evaluated at [facility] 5 days ago and was diagnosed with trichamonis and treated with flagyl. She notes that her symptoms initially improved however she continues to experience burning with urination. She denies any vaginal bleeding or abnormal vaginal discharge. She otherwise denies fevers, chills, SOB, chest pain, nausea, vomiting, abdominal pain, or changes with urination or bowel movements. Past History - Past Medical History Allergies/Adverse Reactions: Allergies Allergy/AdvReac Type Severity Reaction Status Date / Time No Known Allergies Allergy Verified 07/23/18 22:18 Home Medications: Ambulatory Orders Chlordiazepoxide/Clidinium Br [Librax Capsule] 1 each PO DAILY 05/16/18 L.acid/L.casei/B.bif/B.anuja/Fos [Probiotic Blend Capsule] 1 each PO DAILY 40 Days #30 capsule 05/16/18 Anemia: No Asthma: No Cancer: No Cardiac Disorders: No CVA: No COPD: No CHF: No DVT: No Dementia: No Diabetes: No Dialysis: No GI Disorders: Yes (gastritis) HTN: No Hypercholesterolemia: No Kidney Stones: No Liver Disease: No Psychiatric Problems: No Seizures: No Thyroid Disease: No Lung CA: No - Surgical History Abdominal Surgery: No - Immunization History Immunization Up to Date: Yes - Suicide/Smoking/Psychosocial Hx Smoking Status: No Smoking History: Never smoked Have you smoked in the past 12 months: No Number of Cigarettes Smoked Daily: 0 Information on smoking cessation initiated: No Hx Alcohol Use: No Drug/Substance Use Hx: No Substance Use Type: None Review of Systems - Review of Systems Comments:: 07/23/18 23:43 Constitutional: No fevers, chills, fatigue, malaise HEENT: No Rhinorrhea, nasal congestion, visual changes Cardiovascular: No chest pain, syncope, palpitations, lightheadedness Respiratory: No Cough, SOB, Hemoptysis, Gastrointestinal: No Abdominal pain, Nausea, Vomiting, Constipation, Diarrhea, Melena Genitourinary: Dysuria, No Frequency, Urgency, Hesitancy, Hematuria, Flank pain Musculoskeletal: No Myalgia, arthralgia Skin: No rashes, itching, bruising, pallor Neurologic: No Headache, Dizziness, Numbness, Weakness, or Tingling Psychiatric: No Hallucinations. No SI or HI *Physical Exam - Vital Signs Last Vital Signs Temp Pulse Resp BP Pulse Ox 98.0 F 65 16 92/53 L 100 07/23/18 22:15 07/23/18 22:15 07/23/18 22:15 07/23/18 22:15 07/23/18 22:15 - Physical Exam Comments: 07/23/18 23:44 General Appearance: Nourished. No Apparent Distress HEENT: No Pharyngeal Erythema, Tonsillar Exudate, Tonsillar Erythema Neck: No Cervical Lymphadenopathy Respiratory/Chest: Lungs Clear, Normal Breath Sounds. No Crackles, Rales, Rhonchi, Wheezing Cardiovascular: Regular Rhythm, Regular Rate. No Murmur, Gallops, Rubs Gastrointestinal/Abdominal: Normal Bowel Sounds, Soft. No Guarding, Rebound, Tenderness Musculoskeletal: No CVA Tenderness Extremity: Normal Capillary Refill Integumentary: Normal Color, Dry, Warm Neurologic: Fully Oriented, Alert, Normal Mood/Affect, Normal Response, Medical Decision Making - Medical Decision Making 07/23/18 23:46 The patient is a 28 year old female with a history of gastritis who presents for evaluation of burning on urination. Given the patient's history and physical exam, we will obtain a UA and urine culture to evaluate further. We will continue to monitor and reassess while here in the ED. 07/24/18 00:22 UA is unremarkable. The patient had a recent g/c which was negative 1 week ago and had been treated with ceftriaxone at that time. We will treat with diflucan here in the ED. We are comfortable discharging the patient home in stable condition. Patient and family made aware of impression and plan, return precautions discussed including but not limited to worsening pain or symptoms, fevers, or signs of infection, chest pain, respiratory distress, inability to tolerate oral intake, dehydration, syncope, or neurologic changes. The patient is to follow up with [facility] as recommended within 1 week, follow up information provided and the patient will call for an appointment. The patient is to take medications as instructed for duration of time and continue with supportive care , avoid triggers and precipitants. Patient is safe for outpatient follow-up. *DC/Admit/Observation/Transfer Diagnosis at time of Disposition: Dysuria - Discharge Dispostion Disposition: HOME Condition at time of disposition: Stable Decision to Admit order: No - Referrals Referrals: Ewelina Pearce [Primary Care Provider] - - Patient Instructions Printed Discharge Instructions: DI for Dysuria -- Adult Additional Instructions: 1) Please follow-up with your primary care doctor and [facility] specialist in the next 2-3 days. Please call tomorrow to schedule a follow up appointment. If you cannot follow up with your doctor within 1 week please return to the Emergency Department for any urgent issues. 2) Your laboratory results were normal here in the ER. 3) If you have any worsening of symptoms or any other concerns please return to the ER immediately. Return if worsening symptoms including fevers, headache, vomiting, visual or hearing disturbances, abdominal pain, chest pain, shortness of breath, syncope, dehydration, inability to take things by mouth/vomiting, altered mental status, or worsening concerning symptoms. 4) Please continue taking your home medications as directed. - Post Discharge Activity
[2018-07-23 23:49] LABS: EPI CELLS 4.2 /HPF (0-5/HPF); PH,URINE >= 9.0 (5.0-8.0); URINE APPEARANCE CLEAR; URINE BACTERIA 2.4 /hpf (NEGATIVE); URINE BILIRUBIN NEGATIVE (NEGATIVE); URINE CASTS 1 /hpf (0-8); URINE COLOR YELLOW; URINE GLUCOSE (UA) NEGATIVE (NEGATIVE); URINE KETONE NEGATIVE (NEGATIVE); URINE LEUK ESTERASE NEGATIVE (NEGATIVE); URINE NITRITE NEGATIVE (NEGATIVE); URINE PROTEIN 1+ (NEGATIVE); URINE RBC 1 /hpf (0-4); URINE UROBILINOGEN 0.2 mg/dL (0.2-1.0); URINE WBC 0 /hpf (0-5)
--- NOTE | 2018-07-23 23:59 | PDOC ---
Attending Attestation - Resident Resident Name: AliciaAngel - ED Attending Attestation I have performed the following: I have examined & evaluated the patient, The case was reviewed & discussed with the resident, I agree w/resident's findings & plan, Exceptions are as noted - HPI HPI: 07/24/18 00:19 see below - Physicial Exam PE: 07/24/18 00:19 see below - Medical Decision Making 07/23/18 23:55 28y F nopmhx presents with 5-6 days of dysuria, went to [facility] an was dx with trichamonas and given flagyl, sypmtmos improved but dysuria recurred. Denies any vag bleeding. pt was seen here last week, had a pelvic and was treated with ctx, GC ultimately was negative, UA was contaminated. pt went to [facility] and was dx with trich and was treated with flagyl. no fever/chills, no vag bleeding. sexually active with exam: abd soft nontender, no cva tenderness will give pt diflucan as she is concerned she may have a fungal infecti ndue to recurrent sx after starting flagyl
[2018-07-24] MEDS ORDERED: FLUCONAZOLE 50 MG TABLET PO ONE (00:14)
[2018-07-24] MEDS ORDERED: FLUCONAZOLE 100 MG TABLET (UD) ONE (00:51)
[2018-07-24 01:04] VITALS: BP 111/63; PULSE 60; TEMP 98.1
== END 2018-07-24 01:05 | disposition home or self-care (01) ==
LOC: JER 21:59
DX: R30.0 Dysuria (principal)
CPT/HCPCS: 36415; 81003; 87086; 87491; 87591; 99282-25

== ENCOUNTER 2018-10-18 00:09 | Emergency (ER) | payer OTHER ==
[2018-10-18 01:42] VITALS: TEMP 98.4; BMI 17.9
[2018-10-18] MEDS ORDERED: SODIUM PHOSPHATE/NA BIPHOS 133 ML ENEMA PR ONE (02:25)
--- NOTE | 2018-10-18 02:35 | PDOC ---
History of Present Illness - General Chief Complaint: Constipation Stated Complaint: CONSTIPATION X 2 DAYS Time Seen by Provider: 10/18/18 01:48 - History of Present Illness Initial Comments: Uriel Perez is a 28yo woman with a PMH of IBS (constipation and diarrhea) who presents with 2 days of constipation. She states that she takes milk of magnesia multiple times per month for constipation, but she has been taking it for the past several days without results. She bought miralax that she took this evening without any BM yet. She reports that when she does have a bowel movement, her stool is very hard and she needs to strain. She states that she sees Dr Cadet, and she was told in the past to follow a high-fiber diet, but she has not increased her fiber intake. She has not tried metamucil or any stool softeners. She has been able to eat without difficulty, denies any nausea or vomiting, has no focal abdominal pain, and additionally denies fever/chills, sick contacts, recent travel, urinary symptoms, or new medications. Past History - Past Medical History Allergies/Adverse Reactions: Allergies Allergy/AdvReac Type Severity Reaction Status Date / Time No Known Allergies Allergy Verified 10/18/18 01:45 Home Medications: Ambulatory Orders Chlordiazepoxide/Clidinium Br [Librax Capsule] 1 each PO DAILY 05/16/18 L.acid/L.casei/B.bif/B.anuja/Fos [Probiotic Blend Capsule] 1 each PO DAILY 40 Days #30 capsule 05/16/18 Anemia: No Asthma: No Cancer: No Cardiac Disorders: No CVA: No COPD: No CHF: No DVT: No Dementia: No Diabetes: No Dialysis: No GI Disorders: Yes (gastritis) HTN: No Hypercholesterolemia: No Kidney Stones: No Liver Disease: No Psychiatric Problems: No Seizures: No Thyroid Disease: No Lung CA: No - Surgical History Abdominal Surgery: No - Immunization History Immunization Up to Date: Yes - Suicide/Smoking/Psychosocial Hx Smoking Status: No Smoking History: Never smoked Have you smoked in the past 12 months: No Number of Cigarettes Smoked Daily: 0 Information on smoking cessation initiated: No Hx Alcohol Use: No Drug/Substance Use Hx: No Substance Use Type: None Review of Systems - Review of Systems Comments:: General: No fevers, no chills, no weight or appetite change, no malaise HEENT: No changes in vision, no changes in hearing, no congestion, no sore throat CV: No chest pain, no palpitations, no LE edema Pulm: No SOB, no cough, no wheezing GI: No nausea or vomiting, +Constipation, see HPI : No frequency, no urgency, no dysuria Musc: No back pain, no joint swelling, no recent injury Skin: No rash, no lesions, no erythema Endo: No excessive thirst, no heat/cold intolerance Heme: No unusual bruising or bleeding, no swollen glands Neuro: No syncope, no numbness/tingling, no focal weakness Vasc: No claudication Psych: No recent change in mood, no SI or HI *Physical Exam - Vital Signs Last Vital Signs Temp Pulse Resp BP Pulse Ox 98.4 F 62 16 94/50 L 98 10/18/18 01:35 10/18/18 01:35 10/18/18 01:35 10/18/18 01:35 10/18/18 01:35 - Physical Exam Comments: General: Comfortable, no acute distress HEENT: PERRL, EOMI, MMM, voice normal, normal neck ROM, no LAD Cards: RRR, no murmur appreciated Pulm: Comfortable on room air, clear to auscultation bilaterally Abd: Soft, nontender, nondistended Ext: Atraumatic. No LE edema Vasc: Extremities WWP Skin: Normal color, no rashes or lesions Neuro: A&Ox3, CN grossly intact, normal speech, motor/sensory grossly intact and symmetric Psych: Mood appropriate to situation Medical Decision Making - Medical Decision Making 10/18/18 02:26 Uriel Perez is a 28yo woman with a PMH of IBS (constipation and diarrhea) who presents with 2 days of constipation despite taking milk of magnesia multiple days in a row. She reports that she was told to follow a high-fiber diet by Dr Cadet but has not been doing so. - Benign exam - No concerning symptoms including vomiting, PO intolerance, abdominal pain, or distension - Discussed use of stool softeners, fiber, dietary changes at length. - Per request, will give enema while in the ED - Pt has follow up appointment scheduled with Dr Cadet in 2 weeks. Recommending trying to reschedule for later this week if symptoms persist - Plan to d/c home following enema Discussed with Dr Chang. Keena Klein PGY2 *DC/Admit/Observation/Transfer Diagnosis at time of Disposition: Constipation Qualifiers: Constipation type: unspecified constipation type Qualified Code(s): K59.00 - Constipation, unspecified - Discharge Dispostion Disposition: HOME Condition at time of disposition: Stable Decision to Admit order: No - Referrals Referrals: Ewelina Pearce [Primary Care Provider] - Corbin Cadet MD [Staff Physician] - - Patient Instructions Printed Discharge Instructions: DI for Constipation Additional Instructions: Discharge Instructions: You were seen in the emergency department with constipation. You were given an enema to help resolve your symptoms. Home Care and Follow Up: - Increase the amount of fiber in your diet. If necessary, you can add a fiber supplement such as Metamucil 1-2 times per day. This is available at any pharmacy. - If you are having hard/firm stools, you should use a stool softener such as Miralax or docusate. These may also be used 1-2 times per day and are available on the pharmacy shelf. They will help you have softer, easier stools that do not require pushing and straining. - Make sure you are drinking plenty of water. Dehydration can also worsen constipation and harden your stool. - Call Dr Cadet to see if you need to be seen at an earlier appointment. Otherwise, please go to your previously scheduled appointment. - Seek immediate care if you have severe abdominal pain, persistent vomiting, you are unable to tolerate liquids, or you have any medical emergency. - Post Discharge Activity
--- NOTE | 2018-10-18 03:17 | PDOC ---
Documentation entered by Kaylee Reyes SCRIBE, acting as scribe for Lexus Chang DO. Lexus Chang DO: This documentation has been prepared by the Amy smith Brenda, SCRIBE, under my direction and personally reviewed by me in its entirety. I confirm that the documentation accurately reflects all work , treatment, procedures, and medical decision making performed by me. Attending Attestation - Resident Resident Name: ErnieKeena - ED Attending Attestation I have performed the following: I have examined & evaluated the patient, The case was reviewed & discussed with the resident, I agree w/resident's findings & plan, Exceptions are as noted - HPI HPI: 10/18/18 02:52 The patient is a 28 year old female, with a significant PMH of IBS and gastritis , who presents to the emergency department with 2 days of constipation. She reports taking miralax this evening,to no relief. Patient admits to being noncompliant with high-fiber intake recommended by GI. The patient denies chest pain, shortness of breath, headache and dizziness. Denies fever, chills, nausea, vomiting, abdominal pain and diarrhea. Allergies: NKA Past surgical history: Not reported Social history: Denies PCP: Dr. Wendi Pearce GI: Dr. Cadet - Physicial Exam PE: 10/18/18 02:26 Agree with resident's exam. - Medical Decision Making 10/18/18 02:42 28-year-old female with constipation Patient admits to noncompliance with her fiber regimen recommended by her internet media planner for irritable bowel syndrome Abdomen is non-distended and nontender There has been no fever or vomiting Will offer in-house enema and DC home to follow-up with gastroenterology
[2018-10-18 03:35] VITALS: BP 116/71; PULSE 60
== END 2018-10-18 03:35 | disposition home or self-care (01) ==
LOC: JER 00:09
DX: K58.1 Irritable bowel syndrome with constipation (principal)
CPT/HCPCS: 99283-25

== ENCOUNTER 2018-10-21 20:31 | Emergency (ER) | payer OTHER ==
[2018-10-21 20:54] VITALS: BP 110/74; PULSE 84; TEMP 98.1; BMI 22.6
--- NOTE | 2018-10-21 22:07 | PDOC ---
History of Present Illness - General Chief Complaint: Constipation Stated Complaint: CONSTIPATION Time Seen by Provider: 10/21/18 21:09 History Source: Patient Exam Limitations: No Limitations - History of Present Illness Initial Comments: 10/21/18 22:03 Patient is a 28-year-old female with history of IBS complaining of abdominal pain and distention. Patient states she was in the emergency room for constipation on 10/18/18 and was treated with fleets. States she was instructed to continue the fleets, and had diarrhea on , but since then no stool. She attempted to use the fleets but had burning to her rectum with no stool return. She now complains of upper abdominal pain /, rectal pain and bloating to the upper abdomen. States that she feels like she has to urge to push, nothing comes out. Denies fever, chills, nausea, vomiting, dysuria. LMP: 08/28/18 irreg but states not PMD: Dr. Parry GI: Dr. Cadet PMHX: As above PSOCHX: ALL: NKDA GENERAL/CONSTITUTIONAL: No fever or chills. No weakness. No weight change. HEAD, EYES, EARS, NOSE AND THROAT: No change in vision. No ear pain or discharge. No sore throat. CARDIOVASCULAR: No chest pain or shortness of breath. RESPIRATORY: No cough, wheezing, or hemoptysis. GASTROINTESTINAL: No nausea, vomiting, (+) diarrhea or constipation. No rectal bleeding. GENITOURINARY: No dysuria, frequency, or change in urination. MUSCULOSKELETAL: No joint or muscle swelling or pain. No neck or back pain. SKIN AND BREASTS: No rash or easy bruising. NEUROLOGIC: No headache, vertigo, loss of consciousness, or loss of sensation. PSYCHIATRIC: No depression or anxiety. ENDOCRINE: No increased thirst. No abnormal weight change. HEMATOLOGIC/LYMPHATIC: No anemia, easy bleeding, or history of blood clots. ALLERGIC/IMMUNOLOGIC: No hives or skin allergy. No latex allergy. GENERAL: The patient is awake, alert, and fully oriented, in no acute distress. HEAD: Normal with no signs of trauma. EYES: Pupils equal, round and reactive to light, extraocular movements intact, sclera anicteric, conjunctiva clear. ENT: Ears normal, nares patent, oropharynx clear without exudates. Moist mucous membranes. NECK: Normal range of motion, supple without lymphadenopathy, JVD, or masses. LUNGS: Breath sounds equal, clear to auscultation bilaterally. No wheezes, and no crackles. HEART: Regular rate and rhythm, normal S1 and S2 without murmur, rub. ABDOMEN: Soft, nontender, mild tympany upper abd, No guarding, no rebound. No masses. RETAL: no stool in the vault, no hemorrhoids EXTREMITIES: Normal range of motion, no edema. No clubbing or cyanosis. No cords, erythema, or tenderness. NEUROLOGICAL: Cranial nerves II through XII grossly intact. Normal speech, normal gait. PSYCH: Normal mood, normal affect. SKIN: Warm, Dry, normal turgor, no rashes or lesions noted. Past History - Past Medical History Allergies/Adverse Reactions: Allergies Allergy/AdvReac Type Severity Reaction Status Date / Time No Known Allergies Allergy Verified 10/18/18 01:45 Home Medications: Ambulatory Orders Chlordiazepoxide/Clidinium Br [Librax Capsule] 1 each PO DAILY 05/16/18 L.acid/L.casei/B.bif/B.anuja/Fos [Probiotic Blend Capsule] 1 each PO DAILY 40 Days #30 capsule 05/16/18 Anemia: No Asthma: No Cancer: No Cardiac Disorders: No CVA: No COPD: No CHF: No DVT: No Dementia: No Diabetes: No Dialysis: No GI Disorders: Yes (gastritis, IBS) HTN: No Hypercholesterolemia: No Kidney Stones: No Liver Disease: No Psychiatric Problems: No Seizures: No Thyroid Disease: No Lung CA: No - Surgical History Abdominal Surgery: No - Immunization History Immunization Up to Date: Yes - Suicide/Smoking/Psychosocial Hx Smoking Status: No Smoking History: Never smoked Have you smoked in the past 12 months: No Number of Cigarettes Smoked Daily: 0 Hx Alcohol Use: No Drug/Substance Use Hx: No Substance Use Type: None *Physical Exam - Vital Signs Last Vital Signs Temp Pulse Resp BP Pulse Ox 98.1 F 84 20 110/74 99 10/21/18 20:44 10/21/18 20:44 10/21/18 20:44 10/21/18 20:44 10/21/18 20:44 ED Treatment Course - RADIOLOGY Radiology Studies Ordered: Category Date Time Status ABDOMEN FLAT & UPRIGHT [RAD] Stat Radiology 10/21/18 21:38 Ordered Medical Decision Making - Medical Decision Making 10/21/18 22:03 Patient is a 28-year-old female with history of IBS complaining of abdominal pain and distention. Patient states she was in the emergency room for constipation on 10/18/18 and was treated with fleets. States she was instructed to continue the fleets, and had diarrhea on , but since then no stool. She attempted to use the fleets but had burning to her rectum with no stool return. She now complains of upper abdominal pain 2/10, rectal pain and bloating to the upper abdomen. States that she feels like she has to urge to push, nothing comes out. Denies fever, chills, nausea, vomiting, dysuria. Symptoms consistent with constipation. Abdominal x-ray flat and upright. X-ray reviewed noted large amount of stool throughout the colon. Given lactulose 20 mg by mouth I discussed the physical exam findings, ancillary test results and final diagnoses with the patient. I answered all of the patient's questions. The patient was satisfied with the care received and felt comfortable with the discharge plan and treatment plan. The Patient agrees to follow up with the primary care physician within 24-72 hours. Patient instructed to continue MiraLAX every 2 hours until movement. Continue fiber in the diet. *DC/Admit/Observation/Transfer Diagnosis at time of Disposition: Constipation Qualifiers: Constipation type: unspecified constipation type Qualified Code(s): K59.00 - Constipation, unspecified - Discharge Dispostion Disposition: HOME Condition at time of disposition: Stable - Referrals Referrals: Martha Lee MD [Primary Care Provider] - - Patient Instructions Printed Discharge Instructions: DI for Constipation Additional Instructions: Your Discharge Instructions: You must call primary care physician within 24 hours to arrange follow-up. Return to the Emergency Department with any new, persistent or worsening symptoms, for fever, chills, SOB, dizziness or any other concerning changes that may occur. Continue Metamucil take it every 2 hours until bowel movement. Continue fiber in the diet and follow up with GI doctor Helio. - Post Discharge Activity
[2018-10-21] MEDS ORDERED: LACTULOSE 20 GM/30 ML UDC (FOR ORAL USE ONLY) PO ONE (22:49)
[2018-10-21] MEDS ORDERED: LACTULOSE 20 GM/30 ML UDC (FOR ORAL USE ONLY) ONE (22:53)
== END 2018-10-21 23:13 | disposition home or self-care (01) ==
LOC: JER 20:31
DX: K59.00 Constipation, unspecified (principal); Z87.19 Personal history of other diseases of the digestive system
CPT/HCPCS: 74019-TC-FY; 99281-25

== ENCOUNTER 2018-10-26 22:09 | Emergency (ER) | payer OTHER ==
[2018-10-26 22:33] VITALS: BP 107/60; PULSE 78; TEMP 99; BMI 17.9
--- NOTE | 2018-10-26 23:47 | PDOC ---
History of Present Illness - General Chief Complaint: Pain Stated Complaint: ABDOMINAL PAIN Time Seen by Provider: 10/26/18 23:40 - History of Present Illness Initial Comments: 28yo F with PMH of IBS presenting with abdominal pain and diarrhea. Patient states she feels this is her IBS flaring up. She was seen in this ED on 10/18/18 and 10/21/18 for abdominal pain and constipation. Patient was taking milk of magnesia daily for the past week until she switched to magnesium citrate today by recommendation or her primary care physician. Patient also ate oatmeal with flaxseed which she believes may have worsened her diarrhea as well. She has had five episodes of watery, nonbloody diarrhea. Her abdominal pain is diffuse and described as "crampy." Has an appointment to see her GI doctor on 11/08/18. Patient has tolerated po intake but when she ate mashed potatoes earlier, she had to bejarano to the bathroom for an episode of diarrhea. No recent travel or sick contacts. No recent antibiotic use. Had a colonoscopy and endoscopy last year which were "normal" which led to the diagnosis of IBS. Denies fever, chills , chest pain, or shortness of breath. PCP: Dr Parry GI: Dr. Cadet Past History - Past Medical History Allergies/Adverse Reactions: Allergies Allergy/AdvReac Type Severity Reaction Status Date / Time No Known Allergies Allergy Verified 10/26/18 22:33 Home Medications: Ambulatory Orders Chlordiazepoxide/Clidinium Br [Librax Capsule] 1 each PO DAILY 05/16/18 L.acid/L.casei/B.bif/B.anuja/Fos [Probiotic Blend Capsule] 1 each PO DAILY 40 Days #30 capsule 05/16/18 Anemia: No Asthma: No Cancer: No Cardiac Disorders: No CVA: No COPD: No CHF: No DVT: No Dementia: No Diabetes: No Dialysis: No GI Disorders: Yes (gastritis, IBS) HTN: No Hypercholesterolemia: No Kidney Stones: No Liver Disease: No Psychiatric Problems: No Seizures: No Thyroid Disease: No Lung CA: No - Surgical History Abdominal Surgery: No - Immunization History Immunization Up to Date: Yes - Suicide/Smoking/Psychosocial Hx Smoking Status: No Smoking History: Never smoked Have you smoked in the past 12 months: No Number of Cigarettes Smoked Daily: 0 Information on smoking cessation initiated: No Hx Alcohol Use: No Drug/Substance Use Hx: No Substance Use Type: None Review of Systems - Review of Systems Comments:: Constitutional: no fever, no chills HEENT: no throat pain, no dysphagia Cardiovascular: no chest pain, no palpitations Respiratory: no cough, no shortness of breath Gastrointestinal: +abdominal pain, +diarrhea Genitourinary: no dysuria, no frequency Musculoskeletal: no myalgia, no arthralgia Skin: no rash, no itching Neurologic: no headache, no weakness *Physical Exam - Vital Signs Last Vital Signs Temp Pulse Resp BP Pulse Ox 99.0 F 78 16 107/60 100 10/26/18 22:30 10/26/18 22:30 10/26/18 22:30 10/26/18 22:30 10/26/18 22:30 - Physical Exam Comments: General: Awake, alert, and fully oriented, in no acute distress Head: No signs of trauma Eyes: EOMI, sclera anicteric ENT: Moist mucus membranes Neck: Normal ROM, supple Lungs: Lungs clear, Normal breath sounds Cardio: Regular rhythm, S1 and S2 present Abdomen: Soft, nontender, nondistended. Hyperactive bowel sounds. No guarding, no rebound, no masses. No CVA tenderness. Extremities: Normal range of motion, Distal pulses present SKIN: Warm, Dry, normal turgor Neurologic: Cranial nerves II through XII grossly intact. Normal speech ED Treatment Course - LABORATORY CBC & Chemistry Diagram: 10/27/18 00:07 10/27/18 00:07 Medical Decision Making - Medical Decision Making 28yo F with PMH of IBS presenting with abdominal pain and diarrhea. DDX including but not limited to IBS exacerbation, gastritis, gastroenteritis, pancreatitis, food-borne illness, C diff Labs IV fluids CBC WBC 6.8 K/mm3 (4.0-10.0) 10/27/18 00:07 RBC 3.92 M/mm3 (3.60-5.2) 10/27/18 00:07 Hgb 11.7 GM/dL (10.7-15.3) 10/27/18 00:07 Hct 35.0 % (32.4-45.2) 10/27/18 00:07 MCV 89.2 fl (80-96) 10/27/18 00:07 MCH 29.9 pg (25.7-33.7) 10/27/18 00:07 MCHC 33.5 g/dl (32.0-36.0) 10/27/18 00:07 RDW 14.1 % (11.6-15.6) 10/27/18 00:07 Plt Count 223 K/MM3 (134-434) 10/27/18 00:07 MPV 8.7 fl (7.5-11.1) D 10/27/18 00:07 Absolute Neuts (auto) 4.7 K/mm3 (1.5-8.0) 10/27/18 00:07 Neutrophils % 69.3 % (42.8-82.8) 10/27/18 00:07 Lymphocytes % 22.3 % (8-40) 10/27/18 00:07 Monocytes % 6.8 % (3.8-10.2) D 10/27/18 00:07 Eosinophils % 0.8 % (0-4.5) D 10/27/18 00:07 Basophils % 0.8 % (0-2.0) 10/27/18 00:07 Nucleated RBC % 0 % (0-0) 10/27/18 00:07 No anemia or leukocytosis CMP Sodium 141 mmol/L (136-145) 10/27/18 00:07 Potassium 3.5 mmol/L (3.5-5.1) 10/27/18 00:07 Chloride 104 mmol/L (98-107) 10/27/18 00:07 Carbon Dioxide 30 mmol/L (21-32) 10/27/18 00:07 Anion Gap 7 MMOL/L (8-16) L 10/27/18 00:07 BUN 20.2 mg/dL (7-18) H 10/27/18 00:07 Creatinine 0.8 mg/dL (0.55-1.3) 10/27/18 00:07 Est GFR (CKD-EPI)AfAm 117.10 10/27/18 00:07 Est GFR (CKD-EPI)NonAf 101.04 10/27/18 00:07 Random Glucose 85 mg/dL (74-106) 10/27/18 00:07 Calcium 8.3 mg/dL (8.5-10.1) L 10/27/18 00:07 Total Bilirubin 1.0 mg/dL (0.2-1) 10/27/18 00:07 AST 21 U/L (15-37) 10/27/18 00:07 ALT 15 U/L (13-61) 10/27/18 00:07 Alkaline Phosphatase 78 U/L (45-117) 10/27/18 00:07 Total Protein 7.1 g/dl (6.4-8.2) 10/27/18 00:07 Albumin 3.7 g/dl (3.4-5.0) 10/27/18 00:07 Lipase 174 U/L (73-393) 10/27/18 00:07 Electrolytes unremarkable BUN elevated likely due to dehydration Lipase normal Cr normal Patient feeling better after receiving fluid hydration. She will follow up with her GI doctor Discharged *DC/Admit/Observation/Transfer Diagnosis at time of Disposition: Diarrhea Qualifiers: Diarrhea type: unspecified type Qualified Code(s): R19.7 - Diarrhea, unspecified - Discharge Dispostion Disposition: HOME Condition at time of disposition: Stable - Referrals Referrals: Martha Lee MD [Primary Care Provider] - - Patient Instructions Printed Discharge Instructions: Diarrhea, High-Fiber Diet Additional Instructions: You were seen in the emergency department with diarrhea You were given fluids to help resolve your symptoms. Blood work was within normal limits. - Make sure you are drinking plenty of water. - Increase the amount of fiber in your diet. If necessary, you can add a fiber supplement such as Metamucil 1-2 times per day. This is available at any pharmacy [id number]. - If you are having hard/firm stools, you should use a stool softener such as Miralax or docusate. These may also be used 1-2 times per day and are available on the pharmacy shelf. They will help you have softer, easier stools that do not require pushing and straining. - Call Dr. Cadet to see if you need to be seen at an earlier appointment. Otherwise, please go to your previously scheduled appointment. - Seek immediate care if you have severe abdominal pain, persistent vomiting, you are unable to tolerate liquids, or you have any medical emergency. - Post Discharge Activity
[2018-10-27] MEDS ORDERED: SODIUM CHLORIDE 1,000 ML IV STA (00:09)
--- NOTE | 2018-10-27 00:17 | PDOC ---
Documentation entered by Panda Pritchard SCRIBE, acting as scribe for Inocencia Malhotra DO. Inocencia Malhotra DO: This documentation has been prepared by the Macho smith Joel, SCRIBE, under my direction and personally reviewed by me in its entirety. I confirm that the documentation accurately reflects all work, treatment, procedures, and medical decision making performed by me. Attending Attestation - Resident Resident Name: KorinaJeanneMartha - ED Attending Attestation I have performed the following: I have examined & evaluated the patient, The case was reviewed & discussed with the resident, I agree w/resident's findings & plan, Exceptions are as noted - HPI HPI: 10/27/18 00:05 The patient is a 28 year old female with a significant PMH of IBS and gastritis who presents to the emergency department for evaluation of multiple episodes of diarrhea today. The patient states her diarrhea is consistent with her previous episodes of IBS. The patient states she has been taking milk of magnesia to some relief. She notes she has an appointment with her GI Dr. Schneider on . She denies dysuria, frequency, urgency, or hematuria. The patient denies chest pain, shortness of breath, headache and dizziness. Denies fever, chills, nausea, vomit. Allergies: NKA Past surgical history: None reported. Social history: No reported cigarette, alcohol, or drug use. PCP: Dr. Lora 10/27/18 00:15 - Physicial Exam PE: 10/27/18 00:11 GENERAL: Awake, alert, and fully oriented, in no acute distress HEAD: No signs of trauma EYES: PERRLA, EOMI, sclera anicteric, conjunctiva clear ENT: Auricles normal inspection, hearing grossly normal, nares patent, oropharynx clear without exudates. Moist mucosa NECK: Normal ROM, supple, no lymphadenopathy, JVD, or masses LUNGS: Breath sounds equal, clear to auscultation bilaterally. No wheezes, and no crackles HEART: Regular rate and rhythm, normal S1 and S2, no murmurs, rubs or gallops ABDOMEN: Soft, nontender, normoactive bowel sounds. No guarding, no rebound. No masses EXTREMITIES: Normal range of motion, no edema. No clubbing or cyanosis. No cords, erythema, or tenderness NEUROLOGICAL: Cranial nerves II through XII grossly intact. Normal speech, normal gait SKIN: Warm, Dry, normal turgor, no rashes or lesions noted. - Medical Decision Making 10/27/18 00:12 I, Dr. Inocencia Malhotra, DO, attest that this document has been prepared under my direction and personally reviewed by me in its entirety. I further attest, that it accurately reflects all work, treatment, procedures and medical decision -making performed by me. 10/27/18 00:15 a/p: 28yo female with ibs with initially constipation, now with diarrhea -took milk of mag and mag citrate -had 5 episodes of diarrhea today -no recent travel, no recent abx -no recent sick contacts -no abd pain -pt concerned for dehydration -mmm -will send labs, ivf hydration -has follow up with dr. schneider for end of this month -has had irregular menstrual cycles last 2 cycles, will check upreg -pt denies dysuria. 10/27/18 01:11 no elevated wbc pending chem 10/27/18 02:05 labs reviewed pending lipase if negative stable for dc to home and follow up with gi as outpt
[2018-10-27 00:42] LABS: BASO % 0.8 % (0-2.0); EOS % 0.8 % (0-4.5); HEMOGLOBIN 11.7 GM/dL (10.7-15.3); LYMPH % 22.3 % (8-40); MCH 29.9 pg (25.7-33.7); MCHC 33.5 g/dl (32.0-36.0); MEAN CELL VOLUME 89.2 fl (80-96); MEAN PLT VOLUME 8.7 fl (7.5-11.1); MONO % 6.8 % (3.8-10.2); NEUT % 69.3 % (42.8-82.8); PLATELET COUNT 223 K/MM3 (134-434); RBC 3.92 M/mm3 (3.60-5.2); RDW 14.1 % (11.6-15.6); WHITE BLOOD COUNT 6.8 K/mm3 (4.0-10.0)
[2018-10-27 01:31] LABS: ALBUMIN 3.7 g/dl (3.4-5.0); BLOOD UREA NITROGEN 20.2 mg/dL (7-18); CALCIUM 8.3 mg/dL (8.5-10.1); CREATININE 0.8 mg/dL (0.55-1.3); POTASSIUM 3.5 mmol/L (3.5-5.1); TOT PROT 7.1 g/dl (6.4-8.2)
== END 2018-10-27 02:25 | disposition home or self-care (01) ==
LOC: JER 22:09
PROC: 3E0337Z Introduction of Electrolytic and Water Balance Substance into Peripheral Vein, Percutaneous Approach (ICD-10-PCS; principal; 2018-10-26)
DX: R19.7 Diarrhea, unspecified (principal); Z87.19 Personal history of other diseases of the digestive system
CPT/HCPCS: 36415; 80053; 83690; 84703; 85025; 99283-25; J7030

== ENCOUNTER 2018-10-31 15:18 | Emergency (ER) | payer OTHER ==
[2018-10-31 15:25] VITALS: TEMP 98.4; BMI 17.7
[2018-10-31] MEDS ORDERED: LACTULOSE 20 GM/30 ML UDC (FOR ORAL USE ONLY) PO ONE (17:08)
--- NOTE | 2018-10-31 17:16 | PDOC ---
History of Present Illness - General Chief Complaint: Pain Stated Complaint: ABD PAIN Time Seen by Provider: 10/31/18 16:53 History Source: Patient - History of Present Illness Timing/Duration: reports: other Past History - Past Medical History Allergies/Adverse Reactions: Allergies Allergy/AdvReac Type Severity Reaction Status Date / Time No Known Allergies Allergy Verified 10/31/18 15:21 Home Medications: Ambulatory Orders Chlordiazepoxide/Clidinium Br [Librax Capsule] 1 each PO DAILY 05/16/18 L.acid/L.casei/B.bif/B.anuja/Fos [Probiotic Blend Capsule] 1 each PO DAILY 40 Days #30 capsule 05/16/18 Magnesium Citrate [Citroma -] 195 ml PO ONCE #1 bottle 10/31/18 Anemia: No Asthma: No Cancer: No Cardiac Disorders: No CVA: No COPD: No CHF: No DVT: No Dementia: No Diabetes: No Dialysis: No GI Disorders: Yes (gastritis, IBS) HTN: No Hypercholesterolemia: No Kidney Stones: No Liver Disease: No Psychiatric Problems: No Seizures: No Thyroid Disease: No Lung CA: No - Surgical History Abdominal Surgery: No - Immunization History Immunization Up to Date: Yes - Suicide/Smoking/Psychosocial Hx Smoking Status: No Smoking History: Never smoked Have you smoked in the past 12 months: No Number of Cigarettes Smoked Daily: 0 Hx Alcohol Use: No Drug/Substance Use Hx: No Substance Use Type: None Review of Systems - Review of Systems Constitutional: No: Chills, Fever, Weakness ABD/GI: Yes: Constipated, Abdominal cramping. No: Blood Streaked Bowels, Diarrhea, Nausea, Rectal Bleeding, Vomiting, Tarry Stools : No: Dysuria *Physical Exam - Vital Signs Last Vital Signs Temp Pulse Resp BP Pulse Ox 98.4 F 66 18 106/46 L 99 10/31/18 15:21 10/31/18 15:21 10/31/18 15:21 10/31/18 15:21 10/31/18 15:21 - Physical Exam General Appearance: Yes: Appropriately Dressed, Mild Distress HEENT: positive: Normal Voice Neck: positive: Supple Gastrointestinal/Abdominal: positive: Normal Bowel Sounds, Tender (minimal ttp diffusely), Soft. negative: Distended, Guarding, Rebound Musculoskeletal: negative: CVA Tenderness Integumentary: positive: Dry, Warm Neurologic: positive: Fully Oriented, Alert, Normal Mood/Affect ED Treatment Course - RADIOLOGY Radiology Studies Ordered: Category Date Time Status ABDOMEN FLAT & UPRIGHT [RAD] Stat Radiology 10/31/18 17:07 Ordered Medical Decision Making - Medical Decision Making 10/31/18 17:13 28 yo F, h/o constipation type IBS, f/u GI, seen in ED multiple times over the past 2 weeks for constipation and treated with stool softeners, laxatives, but then developed diarrhea per patient. After her last visit, her GI doctor told her to stop all her laxatives which she has done but now comes in with recurrent constipationPatient states last bowel movement last night was small and hard. Feels the urge to have a bowel movement but nothing comes out. No rectal pain, pressure. Having some mild abdominal cramps when she attempts to move her bowels. No bright red blood per rectum, fever or chills. Of note, patient has had colonoscopy/endoscopy in past which were "normal" and that led to the dx of IBS. Not on daily meds but has GI f/u in 2 weeks to discuss management per pt See exam Recurrent constipation C/w pt's IBS (constipation type) Multiple ED visits for same over past 2 weeks Developed diarrhea on laxatives/stool softeners so not on bowel regimen currently Not on daily meds Normal scopes in past F/u with outside GI Exam unremarkable today -XR -bowel regimen in ED -reassess -anticipate dc w/ upcoming GI f/u 10/31/18 19:10 Signed out to KADEN Arreaga pending XR/bowel regimen and reassessment *DC/Admit/Observation/Transfer Diagnosis at time of Disposition: Constipation - Discharge Dispostion Disposition: HOME Condition at time of disposition: Stable - Prescriptions Prescriptions: Magnesium Citrate [Citroma -] 195 ml PO ONCE #1 bottle - Referrals Referrals: Madison Ding [Primary Care Provider] - - Patient Instructions Printed Discharge Instructions: Increased Dietary Fiber May Improve Constipation Conditions With Pelvic Aram - Post Discharge Activity Forms/Work/School Notes: Back to Work
[2018-10-31] MEDS ORDERED: LACTULOSE 20 GM/30 ML UDC (FOR ORAL USE ONLY) ONE (17:37)
[2018-10-31] MEDS ORDERED: SODIUM PHOSPHATE/NA BIPHOS 133 ML ENEMA PR ONE (19:14)
--- NOTE | 2018-10-31 19:53 | PDOC ---
*Physical Exam - Vital Signs Last Vital Signs Temp Pulse Resp BP Pulse Ox 98.4 F 66 18 106/46 L 99 10/31/18 15:21 10/31/18 15:21 10/31/18 15:21 10/31/18 15:21 10/31/18 15:21 ED Treatment Course - ADDITIONAL ORDERS Additional order review: Laboratory Results 10/31/18 17:45 Urine HCG, Qual Negative - Medications Given in the ED: ED Medications Discontinued Medications Generic Name Dose Route Start Last Admin Trade Name Marisol PRN Reason Stop Dose Admin Lactulose 20 gm 10/31/18 17:08 10/31/18 17:53 Cephulac (Oral Use) PO 10/31/18 17:09 20 gm ONCE ONE Administration Medical Decision Making - Medical Decision Making 10/31/18 19:50 XRay: constipation 10/31/18 19:53 + hard stool in the ED x 1 fleet enema given. patient had large BM prior to d/c home *DC/Admit/Observation/Transfer Diagnosis at time of Disposition: Constipation Qualifiers: Constipation type: unspecified constipation type Qualified Code(s): K59.00 - Constipation, unspecified - Discharge Dispostion Disposition: HOME Condition at time of disposition: Stable - Prescriptions Prescriptions: Magnesium Citrate [Citroma -] 195 ml PO ONCE #1 bottle - Referrals Referrals: Madison Ding [Primary Care Provider] - - Patient Instructions Printed Discharge Instructions: Increased Dietary Fiber May Improve Constipation Conditions With Pelvic Aram - Post Discharge Activity Forms/Work/School Notes: Back to Work
[2018-10-31 20:24] VITALS: BP 110/48; PULSE 72
== END 2018-10-31 20:27 | disposition home or self-care (01) ==
LOC: JER 15:18
DX: K59.00 Constipation, unspecified (principal)
CPT/HCPCS: 74019-TC-FY; 84703; 99282-25

== ENCOUNTER 2018-11-04 13:20 | Emergency (ER) | payer OTHER | END 2018-11-04 16:28 | disposition home or self-care (01) | LOC: JER 13:20 ==

== ENCOUNTER 2019-01-22 15:55 | Emergency (ER) | payer OTHER ==
[2019-01-22 16:07] VITALS: BP 98/60; PULSE 75; TEMP 98.2; BMI 17.7
--- NOTE | 2019-01-22 16:07 | PDOC ---
Rapid Medical Evaluation Chief Complaint: Rash Time Seen by Provider: 01/22/19 16:04 Medical Evaluation: Allergies Allergy/AdvReac Type Severity Reaction Status Date / Time No Known Allergies Allergy Verified 01/22/19 16:04 01/22/19 16:05 I have performed a brief in-person evaluation of this patient. The patient presents with a chief complaint of: Itchy Buttock rash for 1 month. It is red with bumps as per patient. The patient will proceed to the ED for further evaluation. Discharge Disposition - Diagnosis Rash - Referrals - Patient Instructions - Post Discharge Activity
--- NOTE | 2019-01-22 16:28 | PDOC ---
History of Present Illness - General Chief Complaint: Rash Stated Complaint: RASH Time Seen by Provider: 01/22/19 16:04 History Source: Patient - History of Present Illness Timing/Duration: reports: other Location: reports: other (gluteal crease) Past History - Past Medical History Allergies/Adverse Reactions: Allergies Allergy/AdvReac Type Severity Reaction Status Date / Time No Known Allergies Allergy Verified 01/22/19 16:04 Home Medications: Ambulatory Orders Chlordiazepoxide/Clidinium Br [Librax Capsule] 1 each PO DAILY 05/16/18 L.acid/L.casei/B.bif/B.anuja/Fos [Probiotic Blend Capsule] 1 each PO DAILY 40 Days #30 capsule 05/16/18 Magnesium Citrate [Citroma -] 195 ml PO ONCE #1 bottle 10/31/18 Cephalexin [Keflex] 500 mg PO Q6H #28 capsule 01/22/19 Clotrimazole 14 gm TP BID #1 cream..g. 01/22/19 Anemia: No Asthma: No Cancer: No Cardiac Disorders: No CVA: No COPD: No CHF: No DVT: No Dementia: No Diabetes: No Dialysis: No GI Disorders: Yes (gastritis, IBS) HTN: No Hypercholesterolemia: No Kidney Stones: No Liver Disease: No Psychiatric Problems: No Seizures: No Thyroid Disease: No Lung CA: No - Surgical History Abdominal Surgery: No - Immunization History Immunization Up to Date: Yes - Psycho Social/Smoking Cessation Hx Smoking Status: No Smoking History: Never smoked Have you smoked in the past 12 months: No Number of Cigarettes Smoked Daily: 0 Information on smoking cessation initiated: No Hx Alcohol Use: No Drug/Substance Use Hx: No Substance Use Type: None Review of Systems - Review of Systems Constitutional: No: Chills, Fever Integumentary: Yes: Rash *Physical Exam - Vital Signs Last Vital Signs Temp Pulse Resp BP Pulse Ox 98.2 F 75 17 98/60 98 01/22/19 16:04 01/22/19 16:04 01/22/19 16:04 01/22/19 16:04 01/22/19 16:04 - Physical Exam General Appearance: Yes: Appropriately Dressed. No: Apparent Distress HEENT: positive: Normal Voice Neck: positive: Supple Respiratory/Chest: negative: Respiratory Distress Integumentary: positive: Dry, Warm, Other (gluteal cleft w/ moist, erythematous , beefy looking, tender patches c/w intertrigo w/ erythema to R gluteus ? extending distally) Neurologic: positive: Fully Oriented, Alert, Normal Mood/Affect Medical Decision Making - Medical Decision Making 01/22/19 16:22 28-year-old female history of IBS, here with rash to the crease x 1 month that became painful 2 weeks ago. ?pruritic. No fever or chills See exam Intertrigo to gluteal crease w/ possible superimposed cellulitis -Dc w/ basic skin care, topical antifungal and oral abx -derm f/u given 1 Discharge - Discharge Information Problems reviewed: Yes Clinical Impression/Diagnosis: Intertrigo Disposition: HOME - Additional Discharge Information Prescriptions: Cephalexin [Keflex] 500 mg PO Q6H #28 capsule Clotrimazole 14 gm TP BID #1 cream..g. - Follow up/Referral Referrals: Toma Polanco MD [Staff Physician] - - Patient Discharge Instructions Patient Printed Discharge Instructions: DI for Intertrigo Additional Instructions: You have a condition called intertrigo which is a common inflammatory condition of skin folds. Moisture and friction in the absence of air circulation is a primary cause of this. In addition skin can become secondarily infected with fungal source is fungal or bacterial source You were started on antifungal ointment and oral antibiotics There is also basic skin care that can improve and prevent this condition. See below: Daily cleansing of intertriginous skin with a mild cleanser followed by drying of affected area with a religion department chair on a cool setting Aeration of affected area when feasible Daily application of drying powders Use of absorbent material or clothing, such as cotton or leonardo wool, to separate skin in folds Please follow up with Dr Polanco of director of construction as needed - Post Discharge Activity
== END 2019-01-22 16:46 | disposition home or self-care (01) ==
LOC: JERFT 15:55
DX: L30.4 Erythema intertrigo (principal)
CPT/HCPCS: 99281-25

== ENCOUNTER 2019-03-25 20:26 | Emergency (ER) | payer OTHER ==
--- NOTE | 2019-03-25 21:10 | PDOC ---
History of Present Illness - General Stated Complaint: TEST Time Seen by Provider: 03/25/19 21:08 History Source: Patient - History of Present Illness Timing/Duration: other Past History - Past Medical History Allergies/Adverse Reactions: Allergies Allergy/AdvReac Type Severity Reaction Status Date / Time No Known Allergies Allergy Verified 03/25/19 21:16 Home Medications: Ambulatory Orders Chlordiazepoxide/Clidinium Br [Librax Capsule] 1 each PO DAILY 05/16/18 L.acid/L.casei/B.bif/B.anuja/Fos [Probiotic Blend Capsule] 1 each PO DAILY 40 Days #30 capsule 05/16/18 Magnesium Citrate [Citroma -] 195 ml PO ONCE #1 bottle 10/31/18 Cephalexin [Keflex] 500 mg PO Q6H #28 capsule 01/22/19 Clotrimazole 14 gm TP BID #1 cream..g. 01/22/19 Anemia: No Asthma: No Cancer: No Cardiac Disorders: No CVA: No COPD: No CHF: No DVT: No Dementia: No Diabetes: No Dialysis: No GI Disorders: Yes (gastritis, IBS) HTN: No Hypercholesterolemia: No Kidney Stones: No Liver Disease: No Psychiatric Problems: No Seizures: No Thyroid Disease: No Lung CA: No - Surgical History Abdominal Surgery: No - Immunization History Immunization Up to Date: Yes - Psycho Social/Smoking Cessation Hx Smoking Status: No Smoking History: Never smoked Have you smoked in the past 12 months: No Number of Cigarettes Smoked Daily: 0 Hx Alcohol Use: No Drug/Substance Use Hx: No Substance Use Type: None Review of Systems - Review of Systems Constitutional: No: Chills, Fever ABD/GI: No: Nausea, Vomiting, Abdominal cramping : No: Burning, Dysuria, Discharge, Flank Pain, Hematuria *Physical Exam - Physical Exam General Appearance: Yes: Appropriately Dressed. No: Apparent Distress HEENT: positive: Normal Voice Neck: positive: Supple Respiratory/Chest: negative: Respiratory Distress Gastrointestinal/Abdominal: positive: Soft. negative: Tender Integumentary: positive: Dry, Warm Neurologic: positive: Fully Oriented, Alert, Normal Mood/Affect Medical Decision Making - Medical Decision Making 03/25/19 21:08 29-year-old female history of IBS 0, LMP 02/18/2019 but was abnormal, had positive home test tonight and here for confirmation. No abdominal pain vaginal bleeding or dysuria. Well jarvis and stable. Upreg positive. No need for further w/u in ER as asx. Dc w/ OB f/u Discharge - Discharge Information Problems reviewed: Yes Clinical Impression/Diagnosis: Positive test Condition: Good Disposition: HOME - Follow up/Referral - Patient Discharge Instructions Additional Instructions: Your test is positive Follow-up with your E LEARNING MANAGER - Post Discharge Activity
[2019-03-25 21:16] VITALS: BP 109/64; PULSE 72; TEMP 98.5; BMI 18.5
[2019-03-25 21:27] LABS: PH,URINE 6.5 (5.0-8.0); URINE APPEARANCE CLEAR; URINE BILIRUBIN NEGATIVE (NEGATIVE); URINE COLOR YELLOW; URINE GLUCOSE (UA) NEGATIVE (NEGATIVE); URINE KETONE 1+ (NEGATIVE); URINE LEUK ESTERASE NEGATIVE (NEGATIVE); URINE NITRITE NEGATIVE (NEGATIVE); URINE PROTEIN NEGATIVE (NEGATIVE); URINE UROBILINOGEN 0.2 mg/dL (0.2-1.0)
== END 2019-03-25 21:54 | disposition home or self-care (01) ==
LOC: JERFT 20:26
DX: Z32.01 Encounter for pregnancy test, result positive (principal); K58.9 Irritable bowel syndrome, unspecified; K29.70 Gastritis, unspecified, without bleeding
CPT/HCPCS: 81003; 84703; 99281-25

== ENCOUNTER 2019-04-04 20:07 | Emergency (ER) | payer OTHER ==
[2019-04-04 20:18] VITALS: BP 105/62; PULSE 68; TEMP 98.1; BMI 27.3
--- NOTE | 2019-04-04 21:10 | PDOC ---
*Physical Exam - Vital Signs Last Vital Signs Temp Pulse Resp BP Pulse Ox 98.1 F 68 20 105/62 99 04/04/19 20:16 04/04/19 20:16 04/04/19 20:16 04/04/19 20:16 04/04/19 20:16 - Physical Exam 04/04/19 21:09 The patient was examined by [KADEN Quiñonez] under my direct supervision. I personally evaluated the patient. I concur with the above findings and the plan of care. ED Treatment Course - LABORATORY CBC & Chemistry Diagram: 04/04/19 22:05 04/04/19 22:05 Discharge - Discharge Information Problems reviewed: Yes Clinical Impression/Diagnosis: Abdominal pain during in first trimester Condition: Stable Disposition: HOME - Additional Discharge Information Prescriptions: Ondansetron [Zofran *Odt*] 4 mg SL TID PRN #21 od.tablet PRN Reason: Nausea And/Or Vomiting - Follow up/Referral Referrals: Chrissie Maravilla MD [Staff Physician] - - Patient Discharge Instructions Patient Printed Discharge Instructions: Nausea of (Alternative Therapy), DI for Abdominal Pain -- Early Additional Instructions: Please take medications as prescribed. Follow-up with your INTRANET SPECIALIST as scheduled. If you develop any worsening abdominal pain, vaginal bleeding, or any new or worsening symptoms, please return to the ER - Post Discharge Activity
--- NOTE | 2019-04-04 21:12 | PDOC ---
History of Present Illness - General Chief Complaint: Pain Stated Complaint: ABD PAIN ([id number]) Time Seen by Provider: 04/04/19 21:04 - History of Present Illness Initial Comments: 04/04/19 21:06 CHIEF COMPLAINT: abd pain in HISTORY OF PRESENT ILLNESS: 29 yo F with hx of "IBS symptoms" presents to ED with abdominal pain. Patient reports she felt pain to her epigastrum 3-4 hours after eating brown rice and strawberries. She describes the pain as a "pushing" pain but denies any lower abdominal cramping. She reports sudden onset nausea that has persisted but denies any vomiting or diarrhea. Patient denies taking any medications for her pain but reports taking Miralax for constipation. Patient denies any vaginal bleeding, unusual discharge, or urinary symptoms. LMP 01/23, + test 03/24. Patient is awaiting first OB appt scheduled for April. PCP: Dr. Mary Ruiz No recent travel or sick contacts. PAST MEDICAL HISTORY: Denies past medical history FAMILY HISTORY: Denies SOCIAL HISTORY: Denies tobacco, alcohol, illicit drug use. SURGICAL HISTORY: Denies ALLERGIES: No known drug allergies REVIEW OF SYSTEMS General/Constitutional: Denies fever or chills. Denies weakness, weight change. HEENT: Denies change in vision. Denies ear pain or discharge. Denies sore throat. Cardiovascular: Denies chest pain or shortness of breath. Respiratory: Denies cough, wheezing, or hemoptysis. Gastrointestinal: Abdominal pain with nausea. Denies vomiting, diarrhea or constipation. Denies rectal bleeding. Genitourinary: Denies dysuria, frequency, or change in urination. Musculoskeletal: Denies joint or muscle swelling or pain. Denies neck or back pain. Skin and breasts: Denies rash or easy bruising. Neurologic: Denies headache, vertigo, loss of consciousness, or loss of sensation. Psychiatric: Denies depression or anxiety. PHYSICAL EXAM General Appearance: Well-appearing, appropriately dressed. No apparent distress , no intoxication. HEENT: EOMI, PERRLA, normal ENT inspection, normal voice, TMs normal, pharynx normal. No conjunctival pallor. No photophobia, scleral icterus. Neck: Supple. Trachea midline. No tenderness, rigidity, carotid bruit, stridor , lymphadenopathy, or thyromegaly. Respiratory/Chest: Lungs CTAB. No shortness of breath, chest tenderness, respiratory distress, accessory muscle use. No crackles, rales, rhonchi, stridor , wheezing, dullness Cardiovascular: RRR. S1, S2. No JVD, murmur, bradycardia, tachycardia. Vascular Pulses: Dorsalis-Pedis (R): 2+, Dorsalis-Pedis (L): 2+ Gastrointestinal/Abdominal: Mild TTP to epigastrum. Normal bowel sounds. Abdomen soft, non-distended. No tenderness or rebound tenderness. No organomegaly, pulsatile mass, guarding, hernia, hepatomegaly, splenomegaly. Musculoskeletal/Extremities: Normal inspection. FROM of all extremities, normal capillary refill. Pelvis Stable. No CVA tenderness. No tenderness to extremities, pedal edema, swelling, erythema or deformity. Integumentary: Appropriate color, dry, warm. No cyanosis, erythema, jaundice or rash Neurologic: administrative services manager II-XII intact. Fully oriented, alert. Appropriate mood/affect. Motor strength 5/5. No appreciable EOM palsy, facial droop or sensory deficit. Past History - Past Medical History Allergies/Adverse Reactions: Allergies Allergy/AdvReac Type Severity Reaction Status Date / Time No Known Allergies Allergy Verified 03/25/19 21:16 Home Medications: Ambulatory Orders Chlordiazepoxide/Clidinium Br [Librax Capsule] 1 each PO DAILY 05/16/18 L.acid/L.casei/B.bif/B.anuja/Fos [Probiotic Blend Capsule] 1 each PO DAILY 40 Days #30 capsule 05/16/18 Magnesium Citrate [Citroma -] 195 ml PO ONCE #1 bottle 10/31/18 Cephalexin [Keflex] 500 mg PO Q6H #28 capsule 01/22/19 Clotrimazole 14 gm TP BID #1 cream..g. 01/22/19 Ondansetron [Zofran *Odt*] 4 mg SL TID PRN #21 od.tablet 04/04/19 Anemia: No Asthma: No Cancer: No Cardiac Disorders: No CVA: No COPD: No CHF: No DVT: No Dementia: No Diabetes: No Dialysis: No GI Disorders: Yes (gastritis, IBS) HTN: No Hypercholesterolemia: No Kidney Stones: No Liver Disease: No Psychiatric Problems: No Seizures: No Thyroid Disease: No Lung CA: No - Surgical History Abdominal Surgery: No - Immunization History Immunization Up to Date: Yes - Psycho Social/Smoking Cessation Hx Smoking Status: No Smoking History: Never smoked Have you smoked in the past 12 months: No Number of Cigarettes Smoked Daily: 0 Information on smoking cessation initiated: No Hx Alcohol Use: No Drug/Substance Use Hx: No Substance Use Type: None *Physical Exam - Vital Signs Last Vital Signs Temp Pulse Resp BP Pulse Ox 98.1 F 68 20 105/62 99 04/04/19 20:16 04/04/19 20:16 04/04/19 20:16 04/04/19 20:16 04/04/19 20:16 ED Treatment Course - LABORATORY CBC & Chemistry Diagram: 04/04/19 22:05 04/04/19 22:05 Medical Decision Making - Medical Decision Making 04/04/19 21:12 29 yo F with no PMH presents to ED with abdominal pain. -labs -urine -US Normal obstetric US with IUP dating 7 weeks. Patient reassessed after admin of meds, states she is feeling better and ready to go home. Advised patient to take medication as prescribed and follow up with OB as scheduled. Advised patient of signs and symptoms for return to ED. Patient verbalized understanding and agrees to plan. Discharge - Discharge Information Problems reviewed: Yes Clinical Impression/Diagnosis: Abdominal pain during in first trimester Condition: Stable Disposition: HOME - Admission No - Additional Discharge Information Prescriptions: Ondansetron [Zofran *Odt*] 4 mg SL TID PRN #21 od.tablet PRN Reason: Nausea And/Or Vomiting - Follow up/Referral Referrals: Chrissie Maravilla MD [Staff Physician] - - Patient Discharge Instructions Patient Printed Discharge Instructions: Nausea of (Alternative Therapy), DI for Abdominal Pain -- Early Additional Instructions: Please take medications as prescribed. Follow-up with your HARDENER HELPER as scheduled. If you develop any worsening abdominal pain, vaginal bleeding, or any new or worsening symptoms, please return to the ER - Post Discharge Activity
[2019-04-04] MEDS ORDERED: ONDANSETRON 4 MG/2 ML VIAL IVPUSH ONE (21:18)
[2019-04-04] MEDS ORDERED: SODIUM CHLORIDE 0.9% 500 ML INFUS.BAG IV ONE (21:18)
[2019-04-04] MEDS ORDERED: ONDANSETRON 4 MG/2 ML VIAL ONE (21:54)
[2019-04-04 22:13] LABS: BASO % 0.8 % (0-2.0); EOS % 0.8 % (0-4.5); HEMATOCRIT 36.9 % (32.4-45.2); HEMOGLOBIN 12.1 GM/dL (10.7-15.3); MCH 29.2 pg (25.7-33.7); MCHC 32.9 g/dl (32.0-36.0); MEAN PLT VOLUME 9.3 fl (7.5-11.1); MONO % 5.7 % (3.8-10.2); NEUT % 67.7 % (42.8-82.8); PLATELET COUNT 239 K/MM3 (134-434); RBC 4.15 M/mm3 (3.60-5.2); RDW 14.1 % (11.6-15.6); WHITE BLOOD COUNT 6.6 K/mm3 (4.0-10.0)
[2019-04-04 23:07] LABS: ALBUMIN 3.7 g/dl (3.4-5.0); BILIRUBIN,TOTAL 0.2 mg/dL (0.2-1); BLOOD UREA NITROGEN 8.5 mg/dL (7-18); CALCIUM 8.6 mg/dL (8.5-10.1); CREATININE 0.5 mg/dL (0.55-1.3); POTASSIUM 3.6 mmol/L (3.5-5.1); TOT PROT 7.4 g/dl (6.4-8.2)
== END 2019-04-05 00:16 | disposition home or self-care (01) ==
LOC: JER 20:07
PROC: 3E033GC Introduction of Other Therapeutic Substance into Peripheral Vein, Percutaneous Approach (ICD-10-PCS; principal; 2019-04-04)
DX: O26.891 Other specified pregnancy related conditions, first trimester (principal); R10.9 Unspecified abdominal pain; Z3A.01 Less than 8 weeks gestation of pregnancy
CPT/HCPCS: 36415; 76801-TC; 80053; 83690; 84702; 85025; 86850; 86900; 86901; 99283-25

== ENCOUNTER 2019-04-25 14:43 | Emergency (ER) | payer OTHER ==
[2019-04-25 15:05] VITALS: BMI 19.6
--- NOTE | 2019-04-25 15:18 | PDOC ---
Rapid Medical Evaluation Chief Complaint: Pain, Acute Time Seen by Provider: 04/25/19 15:14 Medical Evaluation: Allergies Allergy/AdvReac Type Severity Reaction Status Date / Time No Known Allergies Allergy Verified 03/25/19 21:16 Vital Signs Temp Pulse Resp BP Pulse Ox 98.8 F 77 18 106/50 L 100 04/25/19 15:03 04/25/19 15:03 04/25/19 15:03 04/25/19 15:03 04/25/19 15:03 04/25/19 15:14 Pt is currently 9 weeks presents with one day of lower abdominal pain. Denies bleeding. Pt had US on 04/04/19 which confirmed an IUP. Pt admits to urinary discomfort Exam: lower abdominal tenderness with no focal findings Orders: basic labs, urine, tvus Pt to proceed to the ER for further evaluation Discharge Disposition - Diagnosis Abdominal pain during in first trimester - Discharge Dispostion Condition at time of disposition: Stable - Referrals - Patient Instructions - Post Discharge Activity
[2019-04-25 15:55] LABS: BASO % 0.6 % (0-2.0); EOS % 0.4 % (0-4.5); HEMATOCRIT 35.4 % (32.4-45.2); HEMOGLOBIN 11.9 GM/dL (10.7-15.3); LYMPH % 18.7 % (8-40); MCH 29.4 pg (25.7-33.7); MCHC 33.6 g/dl (32.0-36.0); MEAN CELL VOLUME 87.6 fl (80-96); MEAN PLT VOLUME 8.4 fl (7.5-11.1); MONO % 4.9 % (3.8-10.2); NEUT % 75.4 % (42.8-82.8); PLATELET COUNT 221 K/MM3 (134-434); RBC 4.05 M/mm3 (3.60-5.2); RDW 14.8 % (11.6-15.6); WHITE BLOOD COUNT 6.7 K/mm3 (4.0-10.0)
[2019-04-25 16:44] LABS: ALBUMIN 3.4 g/dl (3.4-5.0); BILIRUBIN,TOTAL 0.3 mg/dL (0.2-1); BLOOD UREA NITROGEN 6.4 mg/dL (7-18); CALCIUM 8.2 mg/dL (8.5-10.1); CREATININE 0.5 mg/dL (0.55-1.3); POTASSIUM 3.5 mmol/L (3.5-5.1); TOT PROT 6.9 g/dl (6.4-8.2)
[2019-04-25 17:12] LABS: URINE APPEARANCE CLEAR; URINE BILIRUBIN NEGATIVE (NEGATIVE); URINE COLOR YELLOW; URINE GLUCOSE (UA) NEGATIVE (NEGATIVE); URINE KETONE NEGATIVE (NEGATIVE); URINE LEUK ESTERASE NEGATIVE (NEGATIVE); URINE NITRITE NEGATIVE (NEGATIVE); URINE PROTEIN NEGATIVE (NEGATIVE); URINE UROBILINOGEN 0.2 mg/dL (0.2-1.0)
--- NOTE | 2019-04-25 18:08 | PDOC ---
History of Present Illness - General Chief Complaint: Pain, Acute Stated Complaint: 9 WK GA/LT LOWER ABD PAIN Time Seen by Provider: 04/25/19 15:14 History Source: Patient Exam Limitations: No Limitations Past History - Past Medical History Allergies/Adverse Reactions: Allergies Allergy/AdvReac Type Severity Reaction Status Date / Time No Known Allergies Allergy Verified 03/25/19 21:16 Home Medications: Ambulatory Orders Chlordiazepoxide/Clidinium Br [Librax Capsule] 1 each PO DAILY 05/16/18 L.acid/L.casei/B.bif/B.anuja/Fos [Probiotic Blend Capsule] 1 each PO DAILY 40 Days #30 capsule 05/16/18 Magnesium Citrate [Citroma -] 195 ml PO ONCE #1 bottle 10/31/18 Cephalexin [Keflex] 500 mg PO Q6H #28 capsule 01/22/19 Clotrimazole 14 gm TP BID #1 cream..g. 01/22/19 Ondansetron [Zofran *Odt*] 4 mg SL TID PRN #21 od.tablet 04/04/19 Anemia: No Asthma: No Cancer: No Cardiac Disorders: No CVA: No COPD: No CHF: No DVT: No Dementia: No Diabetes: No Dialysis: No GI Disorders: Yes (gastritis, IBS) HTN: No Hypercholesterolemia: No Kidney Stones: No Liver Disease: No Psychiatric Problems: No Seizures: No Thyroid Disease: No Lung CA: No - Surgical History Abdominal Surgery: No - Reproductive History Is Patient Now?: Yes (#): 0 Para: 0 Cervical CA: No Dysfunctional Uterine Bleeding: No Ectopic : No Endometrial CA: No Polycystic Ovaries: No Therapeutic (s) & number: No Tubal Ligation: No Spontaneous : 0 - Immunization History Immunization Up to Date: Yes - Psycho Social/Smoking Cessation Hx Smoking Status: No Smoking History: Never smoked Have you smoked in the past 12 months: No Number of Cigarettes Smoked Daily: 0 Information on smoking cessation initiated: No Hx Alcohol Use: No Drug/Substance Use Hx: No Substance Use Type: None *Physical Exam - Vital Signs Last Vital Signs Temp Pulse Resp BP Pulse Ox 98.8 F 77 18 106/50 L 100 04/25/19 15:03 04/25/19 15:03 04/25/19 15:03 04/25/19 15:03 04/25/19 15:03 - Physical Exam General Appearance: No: Apparent Distress Respiratory/Chest: positive: Lungs Clear, Normal Breath Sounds. negative: Respiratory Distress Cardiovascular: positive: Regular Rhythm, Regular Rate, S1, S2. negative: Murmur Gastrointestinal/Abdominal: positive: Normal Bowel Sounds, Soft. negative: Tender, Distended, Guarding, Rebound Musculoskeletal: negative: CVA Tenderness Neurologic: positive: Alert ED Treatment Course - LABORATORY CBC & Chemistry Diagram: 04/25/19 15:40 04/25/19 15:40 - ADDITIONAL ORDERS Additional order review: Laboratory Results 04/25/19 04/25/19 04/25/19 16:50 15:40 15:40 Sodium 136 Potassium 3.5 Chloride 104 Carbon Dioxide 27 Anion Gap 5 L BUN 6.4 L Creatinine 0.5 L Est GFR (CKD-EPI)AfAm 152.65 Est GFR (CKD-EPI)NonAf 131.71 Random Glucose 55 L Calcium 8.2 L Total Bilirubin 0.3 AST 14 L ALT 10 L Alkaline Phosphatase 58 Total Protein 6.9 Albumin 3.4 Beta HCG, Quant 26909.1 Urine Color Yellow Urine Appearance Clear Urine pH 8.0 D Ur Specific [place] 1.017 Urine Protein Negative Urine Glucose (UA) Negative Urine Ketones Negative Urine Blood Negative Urine Nitrite Negative Urine Bilirubin Negative Urine Urobilinogen 0.2 Ur Leukocyte Esterase Negative Blood Type O POSITIVE Antibody Screen Negative 04/25/19 15:40 RBC 4.05 MCV 87.6 MCHC 33.6 RDW 14.8 MPV 8.4 Neutrophils % 75.4 Lymphocytes % 18.7 D Monocytes % 4.9 Eosinophils % 0.4 Basophils % 0.6 Medical Decision Making - Medical Decision Making 29 y/o F currently 10 weeks , , presents with lower abdominal discomfort, comes and goes, from today. Has occasional emesis in morning ( usually 1 episode in the morning), which is due to morning sickness during . Denies fever, sob, cp, vomiting, diarrhea, dysuria, hematuria, vaginal bleeding. OB: Dr. Maravilla Pelvic US shows evidence of IUP and 1.7 cm R ovarian cyst Glucose was 55, but patient had already ate something UA negative stable for dc 04/25/19 18:03 Discharge - Discharge Information Problems reviewed: Yes Clinical Impression/Diagnosis: Abdominal pain during in first trimester Condition: Stable - Admission No - Follow up/Referral Referrals: Martha Lee MD [Primary Care Provider] - - Patient Discharge Instructions Patient Printed Discharge Instructions: DI for Abdominal Pain -- Early Additional Instructions: Thank you for choosing [facility]. It was a pleasure taking care of you. Your pelvic ultrasound was unremarkable Please continue follow-up with [facility]PERATOR, Dr. Maravilla, regarding your Return to the Emergency Department if your symptoms worsen or persist or have other concerning symptoms. - Post Discharge Activity
[2019-04-25 18:44] VITALS: BP 104/38; PULSE 70; TEMP 98.5
== END 2019-04-25 18:49 | disposition home or self-care (01) ==
LOC: JER 14:43
DX: O26.891 Other specified pregnancy related conditions, first trimester (principal); Z3A.10 10 weeks gestation of pregnancy; R10.9 Unspecified abdominal pain
CPT/HCPCS: 36415; 76817-TC; 80053; 81003; 84702; 85025; 86850; 86900; 86901; 87086; 99282-25

== ENCOUNTER 2020-06-12 18:20 | Inpatient (IN) | payer OTHER ==
[2020-06-12] MEDS ORDERED: ELECTROLYTE-148 SOLN 500 ML IV ONE (19:57)
[2020-06-12] MEDS ORDERED: CITRIC ACID/SODIUM CITRATE 30 ML UNIT-DOSE CUP PO ONE (19:57)
[2020-06-12] MEDS ORDERED: ELECTROLYTE-148 SOLN 1,000 ML IV SCH (20:00)
[2020-06-12 20:12] VITALS: BMI 25.4
[2020-06-12] MEDS ORDERED: morphine SULFATE/Preservative Free 0.5 MG/ML (1cc Syringe) ONE (20:36)
[2020-06-12] MEDS ORDERED: SENNOSIDES/DOCUSATE COMBO (SENNA PLUS) TABLET (UD) PO PRN (21:31)
[2020-06-12] MEDS ORDERED: WITCH HAZEL 50% (TUCKS) 40 PAD/JAR PAD TP PRN (21:31)
[2020-06-12] MEDS ORDERED: IBUPROFEN 800 MG/8 ML IJ IVPB PRN (21:31)
[2020-06-12] MEDS ORDERED: oxyCODONE HCL 5 MG TABLET PO PRN (21:31)
[2020-06-12] MEDS ORDERED: METHYLERGONOVINE MALEATE 0.2 MG/1 ML AMP IM PRN (21:31)
[2020-06-12] MEDS ORDERED: OXYTOCIN 20 UNITS in 0.9% NS 20 UNIT/1,000 ML INFUS.BAG IV SCH (21:45)
[2020-06-12] MEDS ORDERED: OXYTOCIN 20 UNITS in 0.9% NS 20 UNIT/1,000 ML INFUS.BAG IV ONE (22:04)
[2020-06-12] MEDS ORDERED: IBUPROFEN 800 MG/8 ML IJ IVPB ONE (23:01)
[2020-06-12 23:57] LABS: CORD HCO3 22.8 mmHg (20-29); CORD PCO2 43.5 mmHg (30-78); CORD pH 7.337 (7.14-7.44)
[2020-06-13 06:37] LABS: BASO % 0.6 % (0-2.0); EOS % 0.1 % (0-4.5); HEMATOCRIT 21.9 % (32.4-45.2); LYMPH % 13.3 % (8-40); MCH 22.3 pg (25.7-33.7); MCHC 31.9 g/dl (32.0-36.0); MEAN CELL VOLUME 69.9 fl (80-96); MEAN PLT VOLUME 7.7 fl (7.5-11.1); MONO % 4.8 % (3.8-10.2); NEUT % 81.2 % (42.8-82.8); PLATELET COUNT 224 K/MM3 (134-434); RBC 3.13 M/mm3 (3.60-5.2); RDW 17.4 % (11.6-15.6); WHITE BLOOD COUNT 9.2 K/mm3 (4.0-10.0)
[2020-06-13] MEDS: FERROUS SO4 325 MG TABLET (FP) PO SCH ×2 (08:37→18:38)
[2020-06-13] MEDS: PRENATAL VITAMINS W/ FOLIC ACID TABLET (FP) PO SCH (09:43)
[2020-06-13] MEDS: ACETAMINOPHEN 325 MG TABLET (FP) PO PRN ×2 (15:54→23:46)
[2020-06-13] MEDS: SIMETHICONE 80 MG TAB.CHEW (FP) PO PRN ×2 (15:55→23:47)
[2020-06-13] MEDS: IBUPROFEN 600 MG TABLET (FP) PO PRN ×2 (15:57→23:46)
[2020-06-14 08:33] LABS: BASO % 0.7 % (0-2.0); EOS % 0.5 % (0-4.5); HEMATOCRIT 21.8 % (32.4-45.2); LYMPH % 14.6 % (8-40); MCHC 31.3 g/dl (32.0-36.0); MEAN CELL VOLUME 70.2 fl (80-96); MEAN PLT VOLUME 7.5 fl (7.5-11.1); MONO % 3.2 % (3.8-10.2); PLATELET COUNT 233 K/MM3 (134-434); WHITE BLOOD COUNT 6.6 K/mm3 (4.0-10.0)
[2020-06-14 08:47] LABS: HEMOGLOBIN 6.8 GM/dL (10.7-15.3)
[2020-06-14] MEDS: ACETAMINOPHEN 325 MG TABLET (FP) PO PRN (09:31)
[2020-06-14] MEDS: SIMETHICONE 80 MG TAB.CHEW (FP) PO PRN (09:32)
[2020-06-14] MEDS: IBUPROFEN 600 MG TABLET (FP) PO PRN (09:32)
[2020-06-14] MEDS: PRENATAL VITAMINS W/ FOLIC ACID TABLET (FP) PO SCH (09:33)
[2020-06-14] MEDS: FERROUS SO4 325 MG TABLET (FP) PO SCH ×2 (09:33→18:40)
[2020-06-15] MEDS: BISACODYL 10 MG SUPP.RECT RC PRN (02:01)
[2020-06-15] MEDS: PRENATAL VITAMINS W/ FOLIC ACID TABLET (FP) PO SCH (10:50)
[2020-06-15] MEDS: FERROUS SO4 325 MG TABLET (FP) PO SCH ×2 (10:50→19:14)
[2020-06-16] MEDS: FERROUS SO4 325 MG TABLET (FP) PO SCH (07:21)
[2020-06-16] MEDS: BISACODYL 10 MG SUPP.RECT RC PRN (07:21)
[2020-06-16] MEDS: PRENATAL VITAMINS W/ FOLIC ACID TABLET (FP) PO SCH (09:17)
[2020-06-16 09:42] VITALS: BP 122/68; PULSE 60; TEMP 97.5
== END 2020-06-16 13:05 | disposition home or self-care (01) | DRG 540 ==
LOC: JLDR 18:20 → J3W 06-13 13:50
PROVIDERS: ADMIT Obstetrics & Gynecology; ATTEND Obstetrics & Gynecology
PROC: 10D00Z1 Extraction of Products of Conception, Low, Open Approach (ICD-10-PCS; principal; 2020-06-12)
DX: O41.03X0 Oligohydramnios, third trimester, not applicable or unspecified (principal); O36.5930 Maternal care for other known or suspected poor fetal growth, third trimester, not applicable or unspecified; O32.1XX0 Maternal care for breech presentation, not applicable or unspecified; O42.02 Full-term premature rupture of membranes, onset of labor within 24 hours of rupture; O69.81X0 Labor and delivery complicated by cord around neck, without compression, not applicable or unspecified; O90.81 Anemia of the puerperium; D64.9 Anemia, unspecified; Z3A.37 37 weeks gestation of pregnancy; Z37.0 Single live birth
CPT/HCPCS: 36415; 36600; 71046-TC-FY; 82803; 85025; 86850; 86900; 86901; 86922; 88307-TC

== ENCOUNTER 2021-10-20 06:32 | Emergency (ER) | payer OTHER ==
[2021-10-20 07:32] VITALS: BP 112/72; PULSE 86; TEMP 98.9; BMI 21.9
[2021-10-20] MEDS ORDERED: SODIUM CHLORIDE 1,000 ML IV STA (07:56)
[2021-10-20] MEDS ORDERED: FAMOTIDINE 20 MG/50 ML IVPB 20 MG/50 ML MG IVPB ONE ×2 (07:56→08:33)
[2021-10-20] MEDS ORDERED: ONDANSETRON 4 MG/2 ML VIAL IVPUSH ONE ×2 (07:56→08:48)
[2021-10-20] MEDS ORDERED: ACETAMINOPHEN 1000 MG/100 ML BAG IVPB ONE (07:57)
[2021-10-20] MEDS ORDERED: ONDANSETRON 4 MG/2 ML VIAL ONE (08:32)
[2021-10-20] MEDS ORDERED: ACETAMINOPHEN INJECTION 100 ML IVPB ONE (08:32)
[2021-10-20 08:41] LABS: BASO % 0.8 % (0-2.0); EOS % 0.1 % (0-4.5); HEMATOCRIT 34.9 % (32.4-45.2); HEMOGLOBIN 11.5 GM/dL (10.7-15.3); LYMPH % 13.5 % (8-40); MCH 28.7 pg (25.7-33.7); MCHC 32.9 g/dl (32.0-36.0); MEAN CELL VOLUME 87.3 fl (80-96); MEAN PLT VOLUME 9.3 fl (7.5-11.1); MONO % 3.3 % (3.8-10.2); NEUT % 82.3 % (42.8-82.8); PLATELET COUNT 399 10^3/uL (134-434); RBC 3.99 M/mm3 (3.60-5.2); RDW 21.5 % (11.6-15.6); WHITE BLOOD COUNT 8.4 K/mm3 (4.0-10.0)
[2021-10-20 08:42] LABS: PH,URINE 7.5 (5.0-8.0); URINE APPEARANCE CLEAR; URINE BILIRUBIN NEGATIVE (NEGATIVE); URINE COLOR YELLOW; URINE GLUCOSE (UA) NEGATIVE (NEGATIVE); URINE KETONE NEGATIVE (NEGATIVE); URINE LEUK ESTERASE NEGATIVE (NEGATIVE); URINE NITRITE NEGATIVE (NEGATIVE); URINE PROTEIN NEGATIVE (NEGATIVE); URINE UROBILINOGEN 0.2 mg/dL (0.2-1.0)
[2021-10-20 09:05] LABS: CALCIUM 8.8 mg/dL (8.5-10.1)
[2021-10-20 09:06] LABS: ALBUMIN 4.1 g/dl (3.4-5.0); BLOOD UREA NITROGEN 8.5 mg/dL (7-18)
[2021-10-20 09:09] LABS: CREATININE 0.5 mg/dL (0.55-1.3); TOT PROT 7.9 g/dl (6.4-8.2)
[2021-10-20 09:11] LABS: BILIRUBIN,TOTAL 0.5 mg/dL (0.2-1)
[2021-10-20 09:46] LABS: ANISOCYTOSIS 1+; MACROCYTOSIS 1+
== END 2021-10-20 11:54 | disposition home or self-care (01) ==
LOC: JER 06:32 → JERFT 06:32
PROC: 3E033GC Introduction of Other Therapeutic Substance into Peripheral Vein, Percutaneous Approach (ICD-10-PCS; principal; 2021-10-20)
DX: K29.00 Acute gastritis without bleeding (principal)
CPT/HCPCS: 36415; 76705-TC; 80053; 81003; 83690; 84703; 85025; 87086; 99285-25

== ENCOUNTER 2022-07-20 21:04 | Emergency (ER) | payer OTHER ==
[2022-07-20 21:10] VITALS: BP 112/72; PULSE 75; RESP 18; TEMP 98.2; BMI 18.8
== END 2022-07-20 22:11 | disposition home or self-care (01) ==
LOC: JER 21:04 → JERFT 21:04
DX: Z32.01 Encounter for pregnancy test, result positive (principal)
CPT/HCPCS: 84703; 99283-25

== ENCOUNTER 2022-08-08 17:16 | Emergency (ER) | payer OTHER ==
[2022-08-08 17:22] VITALS: BP 100/68; PULSE 79; RESP 18; TEMP 98.3; BMI 20.7
[2022-08-08 17:54] LABS: HEMATOCRIT 35.9 % (32.4-45.2); HEMOGLOBIN 11.9 GM/dL (10.7-15.3); MCHC 33.3 g/dl (32.0-36.0); MEAN CELL VOLUME 93.1 fl (80-96); MEAN PLT VOLUME 8.2 fl (7.5-11.1); PLATELET COUNT 273 10^3/uL (134-434); RBC 3.86 M/mm3 (3.60-5.2); RDW 14.2 % (11.6-15.6)
[2022-08-08 17:55] LABS: HCG,QUALITATIVE URINE Positive
[2022-08-08 17:56] LABS: URINE APPEARANCE CLEAR; URINE BILIRUBIN NEGATIVE (NEGATIVE); URINE COLOR YELLOW; URINE GLUCOSE (UA) NEGATIVE (NEGATIVE); URINE KETONE NEGATIVE (NEGATIVE); URINE LEUK ESTERASE NEGATIVE (NEGATIVE); URINE NITRITE NEGATIVE (NEGATIVE); URINE PROTEIN NEGATIVE (NEGATIVE)
[2022-08-08 18:24] LABS: ALBUMIN 3.8 g/dl (3.4-5.0); BLOOD UREA NITROGEN 10.9 mg/dL (7-18)
[2022-08-08 18:28] LABS: CREATININE 0.6 mg/dL (0.55-1.3)
[2022-08-08 18:29] LABS: BILIRUBIN,TOTAL 0.5 mg/dL (0.2-1); TOT PROT 7.6 g/dl (6.4-8.2)
== END 2022-08-08 19:59 | disposition home or self-care (01) ==
LOC: JER 17:16
DX: O20.9 Hemorrhage in early pregnancy, unspecified (principal)
CPT/HCPCS: 36415; 76830-TC; 80053; 81003; 84702; 84703; 85027; 86850; 86900; 86901; 87086; 99284-25

== ENCOUNTER 2022-08-14 14:00 | Emergency (ER) | payer OTHER ==
[2022-08-14 14:11] VITALS: BMI 20.8
[2022-08-14 15:04] LABS: PH,URINE 5.5 (5.0-8.0); URINE APPEARANCE CLOUDY; URINE BILIRUBIN NEGATIVE (NEGATIVE); URINE COLOR ORANGE; URINE GLUCOSE (UA) NEGATIVE (NEGATIVE); URINE KETONE 2+ (NEGATIVE); URINE LEUK ESTERASE 1+ (NEGATIVE); URINE NITRITE NEGATIVE (NEGATIVE); URINE PROTEIN 1+ (NEGATIVE); URINE UROBILINOGEN 0.2 mg/dL (0.2-1.0)
[2022-08-14 15:05] LABS: URINE RBC 5597.9 /uL (0-23.9); URINE WBC 261.2 /uL (0-25.8)
[2022-08-14 15:06] LABS: EPI CELLS 36.2 /uL (0-25.1); HYALINE CASTS 1.15 /uL (0-3.1); URINE BACTERIA 66.9 /uL (0-1359)
[2022-08-14 18:57] VITALS: BP 96/62; PULSE 86; RESP 14; TEMP 98.6
== END 2022-08-14 18:59 | disposition home or self-care (01) ==
LOC: JER 14:00
DX: O03.9 Complete or unspecified spontaneous abortion without complication (principal); O99.611 Diseases of the digestive system complicating pregnancy, first trimester; R10.9 Unspecified abdominal pain; Z3A.01 Less than 8 weeks gestation of pregnancy
CPT/HCPCS: 36415; 76817-TC; 81003; 87070; 87077; 87086; 87205; 87491; 87591; 99284-25